=== PATIENT | male | born 1950 | race Caucasian/White ===

== ENCOUNTER → 2021-08-28 13:49 | Outpatient (BNVA) | payer MEDICARE, SELFPAY | PROVIDERS: PCP Internal Medicine; Visit Provider Surgery | DX: K40.90 Unilateral inguinal hernia, without obstruction or gangrene, not specified as recurrent (principal); Z53.20 Procedure and treatment not carried out because of patient's decision for unspecified reasons; Z77.098 Contact with and (suspected) exposure to other hazardous, chiefly nonmedicinal, chemicals; L03.319 Cellulitis of trunk, unspecified | CPT/HCPCS: 99202 ==

== ENCOUNTER 2021-10-23 13:19 | Outpatient (REF) | payer MEDICARE, SELFPAY ==
[2021-10-23 13:41] LABS: MANUAL DIFF FLAG NO
[2021-10-23 14:47] LABS: Basophils Absolute Auto 0.1 X10*3/uL (0.0-0.2); Basophils Percent Auto 0.7 % (0-2); Eosinophils Absolute Auto 0.3 X10*3/uL (0.0-0.4); Eosinophils Percent Auto 3.3 % (0-4); Hematocrit 46.4 % (42.0-52.0); Hemoglobin 15.4 g/dl (14.0-18.0); Imm Gran Abs Auto 0.02 X10*3/uL (0.00-0.03); Imm Gran Pct Auto 0.3 % (0.0-0.4); Lymphocytes Absolute Auto 1.5 X10*3/uL (1.2-4.9); Lymphocytes Percent Auto 19.1 % (20-40); Mean Corpuscular HGB Conc 33.2 g/dl (31.0-36.0); Mean Corpuscular Hemoglobin 29.8 pg (27.0-33.0); Mean Corpuscular Volume 89.7 fL (80.0-98.0); Mean Platelet Volume 9.3 fL (9.4-12.4); Monocytes Absolute Auto 0.6 X10*3/uL (0.1-1.2); Monocytes Percent Auto 7.9 % (2-11); Neutrophils Absolute Auto 5.3 x10*3/uL (2.0-8.3); Neutrophils Percent Auto 68.7 % (45-73); Platelet Count 182 X10*3/uL (160-400); Red Blood Count 5.17 X10*6/uL (4.60-5.80); Red Cell Distribution Width 13.3 % (11.0-16.0); White Blood Count 7.6 X10*3/uL (4.8-10.8)
[2021-10-23 15:10] LABS: Alanine Aminotransferase 27 U/L (0-40); Albumin Level 4.4 g/dL (3.5-5.0); Alkaline Phosphatase 92 U/L (39-117); Anion Gap 16 (12-20); Aspartate Amino Transferase 22 U/L (5-37); Bilirubin Total 0.3 mg/dL (0.0-1.0); Blood Urea Nitrogen 22 mg/dL (9-16); Calcium 9.4 mg/dL (8.4-10.2); Carbon Dioxide 28 mmol/L (22-29); Chloride 104 mmol/L (96-108); Estimated Glomerular Filt Rate > 60; Glucose Random 146 mg/dL (60-115); Sodium 144 mmol/L (135-145); Total Protein 8.1 g/dL (6.5-8.0)
[2021-10-23 15:13] LABS: Estimated Average Glucose 120 mg/dL; Hemoglobin A1c % 5.8 %
== END 2021-10-23 13:20 | disposition home or self-care (01) ==
LOC: HO.LAB 13:19
PROVIDERS: PCP Internal Medicine; Visit Provider Surgery
DX: R10.9 Unspecified abdominal pain (principal); E11.9 Type 2 diabetes mellitus without complications; K40.90 Unilateral inguinal hernia, without obstruction or gangrene, not specified as recurrent; L03.319 Cellulitis of trunk, unspecified; Z77.098 Contact with and (suspected) exposure to other hazardous, chiefly nonmedicinal, chemicals
CPT/HCPCS: 36415; 80053; 83036; 84134; 85025; 99212

== ENCOUNTER → 2021-11-23 10:24 | Outpatient (BNVA) | payer MEDICARE, SELFPAY | PROVIDERS: PCP Internal Medicine; Visit Provider Urology | DX: N40.1 Benign prostatic hyperplasia with lower urinary tract symptoms (principal); R39.12 Poor urinary stream; R35.0 Frequency of micturition | CPT/HCPCS: 51798; 99202 ==

== ENCOUNTER → 2022-02-15 14:47 | Outpatient (BNVA) | payer MEDICARE, SELFPAY | PROVIDERS: PCP Internal Medicine; Visit Provider Surgery | DX: K40.20 Bilateral inguinal hernia, without obstruction or gangrene, not specified as recurrent (principal); N40.1 Benign prostatic hyperplasia with lower urinary tract symptoms; E11.9 Type 2 diabetes mellitus without complications | CPT/HCPCS: 99212 ==

== ENCOUNTER 2022-03-14 06:12 | Day surgery (SDC) | payer MEDICARE, SELFPAY ==
[2022-03-14 06:27] VITALS: BP 112/63; PULSE 79; RESP 18; TEMP 36.6; O2SAT 97
[2022-03-14 06:34] VITALS: BMI 25.5
--- NOTE | 2022-03-14 07:11 | MHC.SHP ---
Pre-Procedural Eval Section A Date of Service: 03/14/22 The patient is an INPATIENT: No The History & Physical has been completed within 30 days and I have reviewed it.: Yes Section B Chief Complaint: Bilateral inguinal hernia, without obstruction Allergies: Allergies Allergy/AdvReac Type Severity Reaction Status Date / Time No Known Allergies Allergy Verified 02/15/22 14:49 Plan I have reviewed the history and physical and performed a pertinent physical examination on my patient. No changes have occurred unless specified. Time Spent With Patient Time: Total time managing care of this patient today ____ minutes.
--- NOTE | 2022-03-14 07:11 | W.PM.OPN ---
Operative Note Operative Note Date of Service: 03/14/22 Narrative: Preop diagnosis: [Bilateral inguinal hernia, left more symptomatic than right] Postop diagnosis: [Same, bilateral indirect inguinal hernia; a non inflamed appendix was present in the indirect right inguinal hernia and reduced with closure of the hernia sac (Amyand hernia) ] Procedure: [Open mesh repair of bilateral indirect inguinal hernia, 3cm on left, 2cm on right] Surgeon: Nicolas Flanagan MD Assist: [] Anesthesia: [General via LMA] Estimated blood loss: [3cc] Specimen: [None] Indication: [The patient is a 71-year-old gentleman who is sent by the [facility] because of bilateral inguinal hernia that is been present for some number of years. The patient reports numerous maladies related to Agent Wheeler exposure in time in [place] so after medical clearance from his PCP, we discussed repair of his bilateral inguinal hernias. The hernia have enlarged and while the patient has no signs or symptoms of obstruction or incarceration, he is interested in open repair with mesh. He also presented with urinary incontinence and dribbling and was sent for evaluation by Urology. We discussed the options of laparoscopic and open inguinal hernia repair with mesh versus the option of continued observation or 2nd opinion. The patient's questions seemed to be satisfactorily answered. Activity restrictions, specifically the patient cannot lift more than 20 lb for the next 4 weeks, the need for light duty, the fact that the patient is not disabled and can perform light duty was all discussed and apparently understood. The options including continued observation versus operative repair by me or at the MI and 2nd opinion were also discussed. The inherent risks to open inguinal hernia repair were discussed and options of laparoscopic or robotic/MIS repair were also discussed. These risks of hernia surgery include, but are not limited to: Bleeding, infection, hernia recurrence especially if weight gain or postoperative instructions are not followed, nerve entrapment, urinary retention, chronic pain, mesh complications that could require reoperation. The patient seemed to understand all of these options, had his questions answered and wanted to proceed. Activity restrictions were also discussed at length in the patient's questions seemed to be answered. ] Intraoperative findings: [Viable properitoneal fat in a 3 cm left inguinal hernia; viable noninflamed appendix in the right indirect inguinal hernia] Procedure: [ The patient was identified in the preoperative holding area by myself and the operative site marked by me confirming bilateral inguinal hernia, left larger than right. 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 The operative field hair had been clipped in preop holding. The patient was again identified in the operating suite and placed supine on the table. See anesthesia notes for full details regarding anesthesia care and management. An appropriate time-out was performed confirming the operative site and procedure. The patient was then widely prepped and draped in the usual manner using chlorhexidine. A left ileoinguinal nerve block was performed using Marcaine, 0.5% with epi and a standard left inguinal herniorrhaphy incision made sharply through the skin. Dissection was carried through all layers using electric cautery for dissection and hemostasis. Additional local was infiltrated is the external oblique aponeurosis, in the external oblique aponeurosis opened sharply in the direction of its fibers to the external ring. The ilioinguinal nerve was identified and preserved/sacrificed through the dissection. The cord was mobilized at the level of the pubic tubercle and surrounded with hernia tape. The floor was inspected and intact. Careful dissection of the spermatic cord to preserve the vessels and vas was performed to assess for indirect hernia sac. The hernia sac was highly dissected and its contents reduced. Next, internal ring-plasty using a 2-0 Polysorb and a standard [place] tension-free herniorrhaphy performed using polypropylene patch that was sutured to the pubic tubercle and inguinal ligament using a 2-0 Polysorb. A new internal ring was made using 2-0 polypropylene suture. The new internal ring was snug enough that it could just accommodate a tip of a hemostat. Next, the operative field was inspected for hemostasis which was good, the external oblique aponeurosis was closed with a running 0 Polysorb suture, subcutaneous tissues closed with 3-0 Polysorb and skin closed with running 4-0 Monocryl subcuticular suture. Next, a right ileoinguinal nerve block was performed using Marcaine, 0.5% with epi and a standard right inguinal herniorrhaphy incision made sharply through the skin. Dissection was carried through all layers using electric cautery for dissection and hemostasis. Additional local was infiltrated is the external oblique aponeurosis, in the external oblique aponeurosis opened sharply in the direction of its fibers to the external ring. The ilioinguinal nerve was identified and preserved/sacrificed through the dissection. The cord was mobilized at the level of the pubic tubercle and surrounded with hernia tape. The floor was inspected and intact. Careful dissection of the spermatic cord to preserve the vessels and vas was performed to assess for indirect hernia sac. The hernia sac was highly dissected, opened, and viable appendix encountered and carefully returned to the peritoneal cavity since there was no inflammation. Next, internal ring-plasty using a 2-0 Polysorb and a standard [place] tension-free herniorrhaphy performed using polypropylene patch that was sutured to the pubic tubercle and inguinal ligament using a 2-0 Polysorb. A new internal ring was made using 2-0 polypropylene suture. The new internal ring was snug enough that it could just accommodate a tip of a hemostat. Next, the operative field was inspected for hemostasis which was good, the external oblique aponeurosis was closed with a running 0 Polysorb suture, subcutaneous tissues closed with 3-0 Polysorb and skin closed with running 4-0 Monocryl subcuticular suture. The abdomen was washed and dried, Mastisol and Steri-Strips applied followed by a sterile dressing. Patient tolerated the procedure well was sent to the recovery area in stable condition. All sponge and instrument counts were correct x2.]
--- NOTE | 2022-03-14 07:19 | HO.ANESPROP2 ---
HPI - Anesthesia Eval Consult details Narrative: [facility] Active Problems Active Problems: All Active Problems (Updated 03/07/22 @ 14:42 by Debbie Raines, RN) Inguinal hernia (Acute) Cellulitis of pubic region (Acute) DMII (diabetes mellitus, type 2) (Acute) Urinary incontinence (Acute) BPH loc w urin obs/LUTS (Acute) Weak urinary stream (Acute) Urinary frequency (Acute) Inguinal hernia bilateral, non-recurrent (Acute) Agent orange exposure (Acute) Colonoscopy refused (Acute) Lower back pain (Acute) Renal cyst (Acute) Benign liver cyst (Acute) Past Medical History Medical History (Updated 03/07/22 @ 14:42 by Debbie Raines, RN) Agent orange exposure Agoraphobia Anxiety Benign liver cyst Colonoscopy refused DJD (degenerative joint disease) GERD (gastroesophageal reflux disease) Hx of seizure disorder Hyperlipidemia Lower back pain Renal cyst Family History Family History Mother Diabetes Breast cancer Substance use disorder Family history of problems with anesthesia: No Surgical History Surgical History (Updated 03/07/22 @ 14:17 by Debbie Raines, ORALIA) History of bilateral cataract extraction Hx of colonoscopy History of Problems with Anesthesia: No Social History Social History Housing: Apartment Patient Tobacco Use Status: Former Tobacco user e-Cigarette/Vaping Use: Never Used Use of substances other than those prescribed or required for medical reasons: No Are you DNR?: No Advance Directives: No Advance Directives Information Provided: Yes Current occupational status: retired Cognitive needs: No Hearing needs: No Vision needs: No Meds Allergies Allergy/AdvReac Type Severity Reaction Status Date / Time No Known Allergies Allergy Verified 02/15/22 14:49 Active Medications: Current Medications Lactated Ringer's (Lr) 1,000 mls @ 100 mls/hr IVCONT .Q10H [facility] Home Medications Medication Instructions Recorded Confirmed Last Taken Type multivitamin (Daily Multi-Vitamin 1 tab PO DAILY 12/19/20 03/07/22 Unknown History tablet) magnesium 200 mg tablet 200 mg PO BID 08/15/21 03/07/22 Unknown History ascorbic acid (vitamin C) 500 mg 500 mg PO BID 03/07/22 03/07/22 Unknown History tablet (Vitamin C) aspirin 81 mg tablet,delayed 81 mg PO DAILY 03/07/22 03/07/22 Unknown History release cholecalciferol (vitamin D3) 25 25 mcg PO DAILY 03/07/22 03/07/22 Unknown History mcg (1,000 unit) tablet (Vitamin D3) cyanocobalamin (vitamin B-12) 1,000 mcg PO DAILY 03/07/22 03/07/22 Unknown History 1,000 mcg tablet (Vitamin B-12) fish, borage, flaxseed oils-omega cap PO 03/07/22 Unknown History 3,6,9 comb no.1 1,200 mg capsule ([place] 3-6-9) ginkgo biloba 40 mg tablet 40 mg PO DAILY 03/07/22 03/07/22 Unknown History ginseng 250 mg capsule 250 mg PO DAILY 03/07/22 03/07/22 Unknown History nitroglycerin 0.4 mg sublingual 0.4 mg sublingual Q5M PRN Chest 03/07/22 03/07/22 Unknown History tablet Pain vitamin B complex 1 cap PO DAILY 03/07/22 03/07/22 Unknown History vitamin E 268 mg (400 unit) capsule 268 mg PO DAILY 03/07/22 03/07/22 Unknown History Exam Exam Date and Time: March 14, [id number] Height,Weight and Vital Signs: Height 6 ft 4 in Weight 95.254 kg Last Vital Signs Temp 97.8 F 03/14/22 06:27 Pulse 79 03/14/22 06:27 Resp 18 03/14/22 06:27 BP 112/63 03/14/22 06:27 Pulse Ox 97 03/14/22 06:27 O2 Del Method 03/14/22 06:27 Airway Mallampati Class: I TM Dist: >3cm Neck ROM: Full Denture: Upper Partial: Lower Heart: ok Lungs: ok Assessment and Plan Final Anesthetic Review Family History of Problems with Anesthesia: No History of Problems with Anesthesia: No NPO: Yes ASA Class: II and Final Preanesthetic Review: No Changes in Pt Med Stat, Meds/Allgs Chart Reviewed, Consent Obtained/Reviewed and Anes Risks/Benef Reviewed Patient Risk: Intermediate Procedure Risk: Low Anesthetic Plan Anesthetic Plan: GA and Agree w/ Assess. and Plan Disposition: Standard PACU
[2022-03-14 09:50] VITALS: BP 101/45; PULSE 85; RESP 14; TEMP 36.9; O2SAT 95
[2022-03-14 09:55] VITALS: BP 103/53; PULSE 85; RESP 16; O2SAT 96
[2022-03-14] MEDS: oxyCODONE HCl Immed Release 5 MG TABLET 10 MG PO (09:56)
[2022-03-14] MEDS: Acetaminophen 325 MG TABLET 650 MG PO (09:56)
[2022-03-14 10:00] VITALS: BP 103/56; PULSE 77; RESP 16; O2SAT 97
[2022-03-14 10:05] VITALS: BP 115/62; PULSE 75; RESP 16; O2SAT 97
[2022-03-14 10:20] VITALS: BP 111/57; PULSE 76; RESP 16; TEMP 36.8; O2SAT 94
== END 2022-03-14 11:10 | disposition home or self-care (01) ==
PROVIDERS: PCP Internal Medicine; Visit Provider Surgery
PROC: (CPT 49650; principal; 2022-03-14 07:30)
DX: K40.20 Bilateral inguinal hernia, without obstruction or gangrene, not specified as recurrent (principal)
CPT/HCPCS: 49650; C1781; J0690; J2405; J2795; J3010

== ENCOUNTER → 2022-03-22 10:25 | Outpatient (BNVA) | payer MEDICARE, SELFPAY | PROVIDERS: PCP Internal Medicine; Visit Provider Surgery | DX: Z13.89 Encounter for screening for other disorder (principal) ==

== ENCOUNTER 2022-05-13 13:57 | Outpatient (REF) | payer MEDICARE, SELFPAY ==
[2022-05-17 01:33] LABS: PSA, Ultra Sensitive 1.62 ng/mL
== END 2022-05-13 13:58 | disposition home or self-care (01) ==
LOC: HO.HMGCLDS 13:57
PROVIDERS: PCP Internal Medicine; Visit Provider Urology
DX: Z12.5 Encounter for screening for malignant neoplasm of prostate (principal); N40.1 Benign prostatic hyperplasia with lower urinary tract symptoms
CPT/HCPCS: 36415; 84153

== ENCOUNTER → 2022-05-22 13:12 | Outpatient (BNVA) | payer MEDICARE, SELFPAY | PROVIDERS: PCP Internal Medicine; Visit Provider Urology | DX: N40.1 Benign prostatic hyperplasia with lower urinary tract symptoms (principal); R39.12 Poor urinary stream; R35.0 Frequency of micturition | CPT/HCPCS: 51798; 99212 ==

== ENCOUNTER 2022-11-20 13:36 | Outpatient (AMB) | payer MEDICARE, SELFPAY ==
--- NOTE | 2022-11-20 13:43 | MHC.OFFVIS ---
Intake Intake Visit Reasons: 6m follow up Intake Note: Patient presents today for a follow-up on BPH Loc w urine Obs/LUTS, Urinary frequency & Weak Urinary Stream: Meds- Sildenafil & Tamsulosin Allergies to Antibiotic- No Known Allergies Blood Thinner- Aspirin & Furosemide PVR- 0 ml Scientific Writer Required: No Accompanied by: Self / Same As Patient Allergies No Known Allergies Allergy (Verified 11/20/22 14:18) HPI 6m follow up HPI Details Bryson Bonilla is a 72-year-old male who presents today to the office for a six-month follow up. 12/20/22 ? Tr is being followed for BPH. The patient?s last visit was on 05/22/2022. The patient is taking tamsulosin 0.4 mg once daily. He states that somedays he noticed that his urinary stream is weaker. I discussed that I would order tamsulosin 0.4 mg twice a day. However, It is okay if he uses the tamsulosin B.I.D. on Friday, Friday, and Friday if he feels taking B.I.D. every day is too much for him. He was advised that he should not take Viagra within 4 hours of tamsulosin usage. 05/13/2022-- PSA results reviewed? 1.62. Evaluation today: Blood: negative, leukocytes: negative. Bladder scan PVR: 0 mL. Plan: PSA screening prior was ordered. The patient will follow up in a year. [facility] Medical History (Updated 12/15/22 @ 10:20 by Dylon Gordon MD) DJD (degenerative joint disease) Agoraphobia Hx of seizure disorder Hyperlipidemia GERD (gastroesophageal reflux disease) Anxiety Agent orange exposure Colonoscopy refused Lower back pain Renal cyst Benign liver cyst Surgical History Hx of colonoscopy History of bilateral cataract extraction Family History Mother Diabetes Breast cancer Substance use disorder Social History Housing: Apartment Patient Tobacco Use Status: Former Tobacco user e-Cigarette/Vaping Use: Never Used Current occupational status: retired Cognitive needs: No Hearing needs: No Vision needs: No Review of Systems Const All systems reviewed & are unremarkable except as noted in HPI and below Reports no additional complaints Eyes Reports no additional complaints ENT Reports no additional complaints Card Reports no additional complaints Resp Reports no additional complaints GI Reports no additional complaints Musc Reports no additional complaints Skin/Breast Reports system reviewed and no additional complaints, except as documented Neuro Reports no additional complaints Psych Reports no additional complaints Endo Reports no additional complaints James/Lymph Reports no additional complaints Aller/Immun Reports no additional complaints Physical Exam Const General: healthy appearing, no acute distress and well developed Orientation/consciousness: patient oriented x3 HEENT Head: Yes normocephalic and Yes atraumatic Eyes Conjunctivae: conjunctivae normal Neck Neck: Yes normal visual inspection Chest Chest palpation & inspection: normal inspection of the chest Resp Effort & Inspection: normal respiratory effort Cardio Rate: regular rate GI Inspection: Yes normal to inspection Skin General skin exam: no rashes or lesions noted Neuro General: patient oriented x3 Extrem General: Yes no pedal edema Psych Appearance: grossly normal Affect: normal affect Office Procedures Post Void Residual Post Residual Void Post Void Residual (PVR): 0 [id number] Void Residual by ultrasound Results AMB Urinalysis, Automated UA Leukoctes 0 Naomie/uL Last Edit by Mansi Wells [facility] on 11/20/22 14:19 UA Nitrite Negative Last Edit by Mansi Wells [facility] on 11/20/22 14:19 UA Urobilinogen 0.2 mg/dL Last Edit by Mansi Wells [facility] on 11/20/22 14:19 UA Protein 0 mg/dL Last Edit by Mansi Wells [facility] on 11/20/22 14:19 UA pH 6.0 Last Edit by Mansi Wells [facility] on 11/20/22 14:19 UA Blood 0 Gideon/uL Last Edit by Mansi Wells [facility] on 11/20/22 14:19 UA Specific [place] 1.015 Last Edit by Mansi Wells [facility] on 11/20/22 14:19 UA Ketone Negative Last Edit by Mansi Wells [facility] on 11/20/22 14:19 UA Bilirubin 0 mg/dL Last Edit by Mansi Wells [facility] on 11/20/22 14:19 UA Glucose 0 mg/dL Last Edit by YU Esquivel on 11/20/22 14:19 Results Reviewed Results Reviewed: Laboratory Last Values Urine pH (Auto) 6.0 11/20/22 13:46 Specific [place] (Auto) 1.015 11/20/22 13:46 Urine Protein (Auto) 0 mg/dL 11/20/22 13:46 Glucose (UA)(Auto) 0 mg/dL 11/20/22 13:46 Urine Ketones (Auto) Negative 11/20/22 13:46 Urine Blood (Auto) 0 Gideon/uL 11/20/22 13:46 Urine Nitrite (Auto) Negative 11/20/22 13:46 Urine Bilirubin (Auto) 0 mg/dL 11/20/22 13:46 Urine Urobilinogen (Auto) 0.2 mg/dL 11/20/22 13:46 Leukocyte Esterase (Auto) 0 Naomie/uL 11/20/22 13:46 Assessment & Plan Assessment & Plan (1) BPH (benign prostatic hyperplasia): Code(s): N40.0 - Benign prostatic hyperplasia without lower urinary tract symptoms (2) Erectile dysfunction: Code(s): N52.9 - Male erectile dysfunction, unspecified Plan PSA screening prior was ordered. The patient will follow up in a year. Orders: Orders AMB Urinalysis Automated 11/20/22 Z13.9 - Encounter for screening, unspecified AMB Post Void Residual by ultrasound 11/20/22 N39.8 - Other specified disorders of urinary system Patient Instructions: The patient had an opportunity to ask questions regarding treatment plan. All questions were answered. Imaging, Laboratory studies and physical exam results were discussed and reviewed in detail. No major barriers to understanding were identified. The patient expressed understanding and agreement with the above treatment plan. The patient is aware they should contact our office by phone for worsening of their current condition or the appearance of new symptoms. Compliance is encouraged with any medications and followup testing that is ordered. It is a privilege to be allowed the opportunity to participate in the urologic care of your patient. If you have any questions or concerns regarding treatment for the above conditions please do not hesitate to contact me. The office telephone contact is [phone]. This note is constructed in part using voice recognition software. While every effort has been made to ensure accuracy mill operator errors may have been included. Yours sincerely, Dylon Gordon MD Coding Level of Care Code Est Pt Level 4 (01665) Diagnoses BPH (benign prostatic hyperplasia) N40.0 Erectile dysfunction N52.9 CPT Codes Post Residual Void - PVR CPT Code: 42067-Riwk Void Residual by ultrasound ([id number])
== END 2022-11-20 14:40 | disposition home or self-care (01) ==
PROVIDERS: PCP Internal Medicine; Visit Provider Urology
DX: N40.0 Benign prostatic hyperplasia without lower urinary tract symptoms (principal); N52.9 Male erectile dysfunction, unspecified
CPT/HCPCS: 99214

== ENCOUNTER → 2022-11-20 13:36 | Outpatient (BNVA) | payer MEDICARE, SELFPAY | PROVIDERS: Visit Provider Urology | DX: N40.0 Benign prostatic hyperplasia without lower urinary tract symptoms (principal); N52.9 Male erectile dysfunction, unspecified | CPT/HCPCS: 51798; 81003; 99212 ==

== ENCOUNTER 2023-04-14 14:45 | Outpatient (REF) | payer MEDICARE, SELFPAY ==
[2023-04-14 16:14] LABS: MANUAL DIFF FLAG NO
[2023-04-14 16:17] LABS: Basophils Percent Auto 0.4 % (0-2); Eosinophils Absolute Auto 0.3 X10*3/uL (0.0-0.4); Eosinophils Percent Auto 3.5 % (0-4); Hematocrit 44.2 % (42.0-52.0); Hemoglobin 14.8 g/dl (14.0-18.0); Imm Gran Abs Auto 0.02 X10*3/uL (0.00-0.03); Imm Gran Pct Auto 0.3 % (0.0-0.4); Lymphocytes Absolute Auto 1.5 X10*3/uL (1.2-4.9); Lymphocytes Percent Auto 20.3 % (20-40); Mean Corpuscular HGB Conc 33.5 g/dl (31.0-36.0); Mean Corpuscular Hemoglobin 29.8 pg (27.0-33.0); Mean Corpuscular Volume 88.9 fL (80.0-98.0); Mean Platelet Volume 9.6 fL (9.4-12.4); Monocytes Absolute Auto 0.5 X10*3/uL (0.1-1.2); Monocytes Percent Auto 6.9 % (2-11); Neutrophils Percent Auto 68.6 % (45-73); Platelet Count 188 X10*3/uL (160-400); Red Blood Count 4.97 X10*6/uL (4.60-5.80); Red Cell Distribution Width 13.1 % (11.0-16.0); White Blood Count 7.3 X10*3/uL (4.8-10.8)
[2023-04-14 16:31] LABS: Alanine Aminotransferase 15 U/L (0-40); Albumin Level 4.3 g/dL (3.5-5.0); Alkaline Phosphatase 71 U/L (39-117); Anion Gap 10 (12-20); Aspartate Amino Transferase 17 U/L (5-37); Bilirubin Total 0.8 mg/dL (0.0-1.0); Blood Urea Nitrogen 19 mg/dL (9-16); Calcium 9.3 mg/dL (8.4-10.2); Carbon Dioxide 29 mmol/L (22-29); Chloride 106 mmol/L (96-108); Cholesterol 156 mg/dL (<200); Estimated Glomerular Filt Rate > 60; Glucose Fasting 102 mg/dL (60-99); HDL Cholesterol 36 mg/dL (>40); LDL Cholesterol Calculated 104 mg/dL (<100); Sodium 141 mmol/L (135-145); Total Protein 8.1 g/dL (6.5-8.0); Triglycerides 84 mg/dL (<150)
[2023-04-14 16:33] LABS: Estimated Average Glucose 114 mg/dL; Hemoglobin A1c % 5.6 % (<6.0); Total Hemoglobin (HGBA1C) 3518.1667 umol/L
== END 2023-04-14 14:46 | disposition home or self-care (01) ==
LOC: HO.HMGCLDS 14:45
PROVIDERS: PCP Internal Medicine; Visit Provider Internal Medicine
DX: R73.9 Hyperglycemia, unspecified (principal); E78.5 Hyperlipidemia, unspecified; N40.0 Benign prostatic hyperplasia without lower urinary tract symptoms
CPT/HCPCS: 36415; 80053; 80061; 83036; 85025

== ENCOUNTER 2023-04-21 10:50 | Outpatient (AMB) | payer MEDICARE, SELFPAY ==
[2023-04-21 11:03] VITALS: BP 118/76; PULSE 80; O2SAT 96; BMI 26.1
--- NOTE | 2023-04-21 11:03 | MHC.PC.OV ---
Vital Signs 04/21/23 11:03 Height 6 ft 3 in Weight 209 lb BMI 26.1 BP 118/76 Blood Pressure Location Lt brachial Position Sitting Pulse 80 Pulse Source Pulse Oximeter Pulse Oximetry (%) 96 Oxygen Delivery Method Room Air Intake Visit Reasons: Annual PE/Discuss/Bill ACP Intake Note: Pt is here today for PE. Allergies No Known Allergies Allergy (Verified 04/21/23 11:05) Medication List - Last Reconciled 04/21/23 by Romina Kelly MD ascorbic acid (vitamin C) (Vitamin C) 500 mg PO BID aspirin 81 mg PO DAILY buspirone 7.5 mg PO BID PRN cholecalciferol (vitamin D3) (Vitamin D3) 25 mcg PO DAILY cyanocobalamin (vitamin B-12) (Vitamin B-12) 1,000 mcg PO DAILY fish,bora,flax oils-om3,6,9no1 1,200 mg ([place] 3-6-9) caps PO furosemide 20 mg PO DAILY gabapentin 600 mg PO BID ginkgo biloba 40 mg PO DAILY ginseng 250 mg PO DAILY magnesium 200 mg PO BID nitroglycerin 0.4 mg sublingual Q5M PRN omeprazole 20 mg PO DAILY tamsulosin 0.4 mg PO BID 90 days vitamin B complex 1 cap PO DAILY vitamin E 268 mg PO DAILY Tobacco use date assessed: 04/21/23 Fall risk assessment: No Falls in past year Last assessed Fall Risk: 04/21/23 Dental Screening Dental Screen Date: 04/21/23 Did you have a dental visit in the last 12 months?: Yes Did you have a dental problem in the last 6 months where you did not have access to dental care?: No Was dental information given to patient?: Patient has dentist HPI Annual PE/Discuss/Bill ACP HPI Details Patient presents for annual physical. Initiated the conversation about Advanced Directives. Advanced Directives help? patients prepare for current and future decisions about their medical treatment? and place of care. Discussed with patient that it is a process where a patients? current condition and prognosis are reviewed, their wishes for information? regarding their illness are elicited, and likely medical dilemmas are presented? and options discussed. The form can be amended as needed, reviewed yearly and? make changes as needed IPPE/AWV ? year old presents? for her ? Annual? Wellness Visit, initial visit.? Medical / Social History Reviewed? Past Medical History ?Yes? . ? [place]? of Care / Care Team list updated ?Yes . ? Surgical/Hospitalization? History ?Yes . ? Current Medications? (including OTC and supplements) ?Yes . ? Family History ?Yes? . ? Tobacco? Control form ?Yes . ? AUDIT-C (Alcohol use) form? ?Yes . ? Illicit drug use in Social? History ?Yes . ? Current diagnosis of? depression? ?No ? Appropriate PHQ2/PHQ9? completed ?Yes . ? Data entered by ?Medical? Injection Mold Technician and reviewed by provider ? Fall Risk ? Fall? History? Have you had any falls with? injury in the past year? ?No . ? Have you had two or more? falls in the past year? ?No . ? Fall Risk Assessment: ?No? falls in the past year . ? HRA filled out by? the patient, reviewed by Provider and scanned. ? IPPE/AWV ? Balance? [place]? ?Yes . ? Tandem? walk ?Yes . ? Walk and? Turn ?Yes . ? Rise from? sit to stand ?Yes . ?Vision? Corrective? lens ?Yes ? Vision? screen ? Up-to-date, has an appointment [] for vision? screening and glaucoma screening ?Hearing? Whisper? test ?pass .? Initiated the conversation about Advanced Directives. Advanced Directives help? patients prepare for current and future decisions about their medical treatment? and place of care. Discussed with patient that it is a process where a patients? current condition and prognosis are reviewed, their wishes for information? regarding their illness are elicited, and likely medical dilemmas are presented? and options discussed. The form can be amended as needed, reviewed yearly and? make changes as needed Written? Plan?Completed. See Patient? Documents. [facility] Medical History (Updated 04/21/23 @ 11:57 by Romina Kelly MD) DJD (degenerative joint disease) Agoraphobia Hx of seizure disorder Hyperlipidemia GERD (gastroesophageal reflux disease) Anxiety Agent orange exposure Colonoscopy refused Lower back pain Renal cyst Benign liver cyst Surgical History Hx of colonoscopy History of bilateral cataract extraction Family History Mother Diabetes Breast cancer Substance use disorder Social History Housing: Apartment Patient Tobacco Use Status: Former Tobacco user e-Cigarette/Vaping Use: Never Used Current occupational status: retired Cognitive needs: No Hearing needs: No Vision needs: No Questionnaire PHQ-9 Over the last 2 weeks, how often have you been bothered by any of the following problems? 1. Little interest or pleasure in doing things: not at all 2. Feeling down, depressed, or hopeless: not at all 3. Trouble falling or staying asleep, or sleeping too much: not at all 4. Feeling tired or having little energy: not at all 5. Poor appetite or overeating: not at all 6. Feeling bad about yourself - or that you are a failure or have let yourself or your family down: not at all 7. Trouble concentrating on things, such as reading the newspaper or watching television: not at all 8. Moving or speaking so slowly that other people could have noticed. Or the opposite - being so fidgety or restless that you have been moving around a lot more than usual: not at all 9. Thoughts that you would be better off or of hurting yourself in some way: not at all Total score: 0 Depression Screening Interpretation: Negative Depression Screening Done: Yes Source: Developed by Drs. Avery Machuca, Harriett Garcia, Gigi Espinal and colleagues, with an educational vijaya from [employer]. Thrive Questionnaire Date Thrive assessed: 04/21/23 I am a: Patient What is your living situation today?: I have a steady place to live Within the past 12 months, did the food you bought not last and you didn't have the money to get more?: Never true Within the past 12 months, did you worry whether your food would run out before you got money to buy more?: Never true Do you have trouble paying for medicines?: No Do you have trouble getting transportation to medical appointments?: Yes Do you have trouble paying your heating and electricity bill?: No Do you have trouble taking care of your child, family member or friend?: No Do you have trouble with day-to-day activities such as bathing, preparing meals, shopping, managing finances, etc.?: No Are you currently unemployed and looking for a job?: No Are you interested in more education?: Yes Please select the resources that you would like help with: Education Currently or been in a relationship where the following occur: no concerns reported THRIVE Score: 1 AUDIT C Alcohol Use Questionnaire (AUDIT-C) 1. How often do you have a drink containing alcohol?: Never 3. How often do you have six or more drinks on one occasion?: Never Total Score: 0 AMY-7 AMB Questionnaire AMY-7 Date AMY - 7 assessed: 04/21/23 Feeling nervous, anxious, or on edge: 0 = Not at all Not being able to stop or control worryin = Not at all Worrying too much about different things: 0 = Not at all Trouble relaxin = Not at all Being so restless that it is hard to sit still: 0 = Not at all Becoming easily annoyed or irritable: 0 = Not at all Feeling afraid as if something awful might happen: 0 = Not at all Total AMY-7 score (0-4 normal; 5-9 mild; 10-14 moderate; 15-21 severe): 0 Source: Developed by Drs. Avery Machuca, Harriett Garcia, Gigi Espinal and colleagues, with an educational vijaya from [employer]. Review of Systems Const All systems reviewed & are unremarkable except as noted in HPI and below Reports no additional complaints Eyes Reports no additional complaints ENT Reports no additional complaints Card Reports no additional complaints Resp Reports no additional complaints GI Reports no additional complaints Reports no additional complaints Musc Reports no additional complaints Physical exam (Primary Care) Vital Signs: Last Vital Signs Pulse 80 04/21/23 11:03 BP 118/76 04/21/23 11:03 Pulse Ox 96 04/21/23 11:03 Oxygen Delivery Method Room Air 04/21/23 11:03 BMI result Body Mass Index 26.1 Tobacco/Smoking Status: Tobacco use Status Tobacco use date assessed 04/21/23 04/21/23 11:09 Patient Tobacco Use Status Former Tobacco user 04/21/23 11:09 e-Cigarette/Vaping Use Never Used 04/21/23 11:09 PHQ-9: PHQ-9 Score PHQ-9: Total score 0 04/21/23 11:09 Depression Screening Interpretation: Negative Thrive Assessment: Date of Thrive Assessment Date Thrive assessed 04/21/23 04/21/23 11:09 Currently or been in a relationship where the following occur: no concerns reported Advance Care Planning discussion: Exists, not on file Forms completed: Health Care Proxy Time spent: 1-15 minutes, not on file Const General: no acute distress HENMT Head: Yes normal to inspection Ears: hearing grossly normal bilaterally Face and sinus: Yes normal facial exam Mouth: Normal oral and palatal mucosa present Throat: Yes posterior oropharynx normal Eyes General: appearance normal, both eyes and all related structures Neck Neck: Yes no lymphadenopathy and Yes supple Resp Effort & Inspection: normal respiratory effort Auscultation: clear to auscultation bilaterally Cardio Rhythm: regular rhythm Heart sounds: S1 normal heart sound present and S2 normal heart sound present GI Inspection: Yes normal to inspection Palpation (GI): Soft to palpation Percussion: Yes normal to percussion Auscultation: normal bowel sounds Assessment and Plan Assessment & Plan (1) BPH (benign prostatic hyperplasia): Code(s): N40.0 - Benign prostatic hyperplasia without lower urinary tract symptoms Plan: cont tamsulosin and follow-up with Urology (2) Hyperglycemia: Code(s): R73.9 - Hyperglycemia, unspecified Plan: A1c is down to 5.6, continue ADA diet regular exercise (3) Hyperlipidemia: Code(s): E78.5 - Hyperlipidemia, unspecified (4) Annual physical exam: Code(s): Z00.00 - Encounter for general adult medical examination without abnormal findings Plan: Well-balanced diet regular physical activity discussed with the patient. He declined colonoscopy and Cologuard (5) Colonoscopy refused: Comment: 05/02, Cologuard refused 06/03 Code(s): Z53.20 - Procedure and treatment not carried out because of patient's decision for unspecified reasons Orders: Orders Comprehensive [place]. Panel Fast 365 Days N40.0 - Benign prostatic hyperplasia without lower urinary tract symptoms, R73.9 - Hyperglycemia, unspecified, Z00.00 - Encounter for general adult medical examination without abnormal findings, Z53.20 - Procedure and treatment not carried out because of patient's decision for unspecified reasons Hemoglobin A1c 365 Days N40.0 - Benign prostatic hyperplasia without lower urinary tract symptoms, R73.9 - Hyperglycemia, unspecified, Z00.00 - Encounter for general adult medical examination without abnormal findings, Z53.20 - Procedure and treatment not carried out because of patient's decision for unspecified reasons Complete Blood Count Auto Diff 365 Days N40.0 - Benign prostatic hyperplasia without lower urinary tract symptoms, R73.9 - Hyperglycemia, unspecified, Z00.00 - Encounter for general adult medical examination without abnormal findings, Z53.20 - Procedure and treatment not carried out because of patient's decision for unspecified reasons Lipid Panel 365 Days N40.0 - Benign prostatic hyperplasia without lower urinary tract symptoms, R73.9 - Hyperglycemia, unspecified, Z00.00 - Encounter for general adult medical examination without abnormal findings, Z53.20 - Procedure and treatment not carried out because of patient's decision for unspecified reasons UA w Microscopic 365 Days N40.0 - Benign prostatic hyperplasia without lower urinary tract symptoms, R73.9 - Hyperglycemia, unspecified, Z00.00 - Encounter for general adult medical examination without abnormal findings, Z53.20 - Procedure and treatment not carried out because of patient's decision for unspecified reasons PSA,Total (Free>4and<10) 365 Days N40.0 - Benign prostatic hyperplasia without lower urinary tract symptoms, R73.9 - Hyperglycemia, unspecified, Z00.00 - Encounter for general adult medical examination without abnormal findings, Z53.20 - Procedure and treatment not carried out because of patient's decision for unspecified reasons Medications: Changed From buspirone 7.5 mg PO BID 60 tabs 6RF To buspirone 7.5 mg PO BID PRN Discontinued sildenafil (Viagra) administer 30 minutes to 4 hours before activity Discontinued Reason: Doctor's Order 50 mg PO DAILY PRN 10 tabs 3RF sexual activity meloxicam Discontinued Reason: Doctor's Order 15 mg PO DAILY 30 tabs 2RF Coding Level of Care Code Est Pt Prev Care >65y(84968) Diagnoses BPH (benign prostatic hyperplasia) N40.0 Hyperglycemia R73.9 Hyperlipidemia E78.5 Annual physical exam Z00.00 Colonoscopy refused Z53.20 Additional Codes Vital Signs *Quality* - Advance Care Planning discussion: Exists, not on file ([id number]) Vital Signs *Quality* - Time spent: 1-15 minutes, not on file ([id number])
== END 2023-04-21 11:58 | disposition home or self-care (01) ==
PROVIDERS: PCP Internal Medicine; Visit Provider Internal Medicine
DX: N40.0 Benign prostatic hyperplasia without lower urinary tract symptoms (principal); R73.9 Hyperglycemia, unspecified; E78.5 Hyperlipidemia, unspecified; Z00.00 Encounter for general adult medical examination without abnormal findings; Z53.20 Procedure and treatment not carried out because of patient's decision for unspecified reasons
CPT/HCPCS: 1123F; 1124F; 99397

== ENCOUNTER 2023-09-30 12:00 | Outpatient (AMB) | payer MEDICARE, SELFPAY ==
--- NOTE | 2023-09-30 12:03 | MHC.PC.OV ---
Vital Signs 09/30/23 12:04 Height 6 ft 3 in Weight 208 lb BMI 26.0 BP 128/80 Blood Pressure Location Lt brachial Position Sitting Pulse 80 Pulse Source Pulse Oximeter Pulse Oximetry (%) 97 Oxygen Delivery Method Room Air Intake Visit Reasons: 5 month follow up - see comments Intake Note: Pt is here today for 5 months follow up visit. Allergies No Known Allergies Allergy (Verified 09/30/23 12:06) Medication List - Last Reconciled 09/30/23 by Romina Kelly MD ascorbic acid (vitamin C) (Vitamin C) 500 mg PO BID aspirin 81 mg PO DAILY buspirone 7.5 mg PO BID PRN cholecalciferol (vitamin D3) (Vitamin D3) 25 mcg PO DAILY cyanocobalamin (vitamin B-12) (Vitamin B-12) 1,000 mcg PO DAILY fish,bora,flax oils-om3,6,9no1 1,200 mg ([place] 3-6-9) caps PO furosemide 20 mg PO DAILY gabapentin 600 mg PO BID ginkgo biloba 40 mg PO DAILY ginseng 250 mg PO DAILY magnesium 200 mg PO BID meloxicam 15 mg PO DAILY nitroglycerin 0.4 mg sublingual Q5M PRN omeprazole 20 mg PO DAILY tamsulosin 0.4 mg PO BID 90 days vitamin B complex 1 cap PO DAILY vitamin E 268 mg PO DAILY Tobacco use date assessed: 09/30/23 Fall risk assessment: No Falls in past year Last assessed Fall Risk: 09/30/23 Dental Screening Dental Screen Date: 04/21/23 HPI 5 month follow up - see comments HPI Details Patient presents for the follow-up of BPH chronic lower back pain controlled on gabapentin and meloxicam as needed. Patient follows up with urology for BPH with a symptomatic controlled on Flomax. [facility] Medical History (Updated 09/30/23 @ 14:08 by Romina Kelly MD) DJD (degenerative joint disease) Agoraphobia Hx of seizure disorder Hyperlipidemia GERD (gastroesophageal reflux disease) Anxiety Agent orange exposure Colonoscopy refused Lower back pain Renal cyst Benign liver cyst Surgical History (Updated 09/30/23 @ 12:20 by YU Anderson) History of bilateral inguinal hernia repair Hx of colonoscopy History of bilateral cataract extraction Family History Mother Diabetes Breast cancer Substance use disorder Social History Housing: Apartment Patient Tobacco Use Status: Former Tobacco user e-Cigarette/Vaping Use: Never Used service: Yes Current occupational status: retired Cognitive needs: No Hearing needs: No Vision needs: No Questionnaire PHQ-9 Over the last 2 weeks, how often have you been bothered by any of the following problems? 1. Little interest or pleasure in doing things: not at all Source: Developed by Drs. Avery Machuca, Harriett Garcia, Gigi Espinal and colleagues, with an educational vijaya from [employer]. Thrive Questionnaire Date Thrive assessed: 09/30/23 I am a: Patient What is your living situation today?: I choose not to answer this question Within the past 12 months, did the food you bought not last and you didn't have the money to get more?: I choose not to answer this question Within the past 12 months, did you worry whether your food would run out before you got money to buy more?: I choose not to answer this question Do you have trouble paying for medicines?: I choose not to answer this question Do you have trouble getting transportation to medical appointments?: I choose not to answer this question Do you have trouble paying your heating and electricity bill?: I choose not to answer this question Do you have trouble taking care of your child, family member or friend?: I choose not to answer this question Do you have trouble with day-to-day activities such as bathing, preparing meals, shopping, managing finances, etc.?: I choose not to answer this question Are you currently unemployed and looking for a job?: I choose not to answer this question Are you interested in more education?: I choose not to answer this question Please select the resources that you would like help with: None Currently or been in a relationship where the following occur: I choose not to answer THRIVE Score: 0 AUDIT C Alcohol Use Questionnaire (AUDIT-C) 1. How often do you have a drink containing alcohol?: Never 3. How often do you have six or more drinks on one occasion?: Never Total Score: 0 AMY-7 AMB Questionnaire AMY-7 Date AMY - 7 assessed: 09/30/23 Feeling nervous, anxious, or on edge: 0 = Not at all Not being able to stop or control worryin = Not at all Worrying too much about different things: 0 = Not at all Trouble relaxin = Not at all Being so restless that it is hard to sit still: 0 = Not at all Becoming easily annoyed or irritable: 0 = Not at all Feeling afraid as if something awful might happen: 0 = Not at all Total AMY-7 score (0-4 normal; 5-9 mild; 10-14 moderate; 15-21 severe): 0 Source: Developed by Drs. Avery Machuca, Harriett Garcia, Gigi Espinal and colleagues, with an educational vijaya from [employer]. AMY-7 Assessment Billing AMY-7 Assessment Tool: AMY-7 Assessment 05130 Review of Systems Const All systems reviewed & are unremarkable except as noted in HPI and below Reports no additional complaints Eyes Reports no additional complaints ENT Reports no additional complaints Card Reports no additional complaints Resp Reports no additional complaints GI Reports no additional complaints Reports no additional complaints Physical exam (Primary Care) Vital Signs: Last Vital Signs Pulse 80 09/30/23 12:04 BP 128/80 09/30/23 12:04 Pulse Ox 97 09/30/23 12:04 Oxygen Delivery Method Room Air 09/30/23 12:04 BMI result Body Mass Index 26.0 Tobacco/Smoking Status: Tobacco use Status Tobacco use date assessed 09/30/23 09/30/23 12:13 Patient Tobacco Use Status Former Tobacco user 09/30/23 12:13 e-Cigarette/Vaping Use Never Used 09/30/23 12:13 Thrive Assessment: Date of Thrive Assessment Date Thrive assessed 09/30/23 09/30/23 12:17 Currently or been in a relationship where the following occur: I choose not to answer Const General: no acute distress HENMT Head: Yes normal to inspection Face and sinus: Yes normal facial exam Throat: Yes posterior oropharynx normal Eyes General: appearance normal, both eyes and all related structures Neck Neck: Yes no lymphadenopathy and Yes supple Resp Effort & Inspection: normal respiratory effort Auscultation: clear to auscultation bilaterally Cardio Rhythm: regular rhythm Heart sounds: S1 normal heart sound present and S2 normal heart sound present GI Inspection: Yes normal to inspection Palpation (GI): Soft to palpation Percussion: Yes normal to percussion Auscultation: normal bowel sounds Assessment and Plan Assessment & Plan (1) BPH (benign prostatic hyperplasia): Code(s): N40.0 - Benign prostatic hyperplasia without lower urinary tract symptoms Plan: Continue Flomax and follow-up with Urology (2) Lower back pain: Comment: hx of LB injury and DJD Code(s): M54.50 - Low back pain, unspecified Plan: Continue gabapentin and meloxicam p.r.n. Medications: Discontinued buspirone Discontinued Reason: Change Referral Type 7.5 mg PO BID PRN Coding Level of Care Code Est Pt Level 3 (08092) Diagnoses BPH (benign prostatic hyperplasia) N40.0 Lower back pain M54.50 Additional Codes AMY-7 Assessment Billing - AMY-7 Assessment Tool: AMY-7 Assessment 29736 ([id number])
[2023-09-30 12:04] VITALS: BP 128/80; PULSE 80; O2SAT 97; BMI 26.0
== END 2023-09-30 13:38 | disposition home or self-care (01) ==
PROVIDERS: PCP Internal Medicine; Visit Provider Internal Medicine
DX: N40.0 Benign prostatic hyperplasia without lower urinary tract symptoms (principal); M54.50 Low back pain, unspecified
CPT/HCPCS: 99213

== ENCOUNTER 2024-03-15 11:40 | Outpatient (REF) | payer MEDICARE, SELFPAY ==
--- OUTSIDE RECORDS SUMMARY | 2024-03-15 13:01 | XMS_ITS | Clinical Summary ---
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 DX:H/ O total knee replacement History of total hip replacement 03/25/2018 DX:History of total hip replacement Insomnia 10/06/2017 DX:Insomnia Lower extremity edema 04/03/2017 DX:Lower e xtremity edema Psoriasis 05/08/2015 DX:Psoriasis Seizures (CMS/HCC) 11/13/2015 DX:Seizures ( HCC) Family History Medical History Relation Name Comments No Known Problems Brother No Known Problems Daughter No Known Problems Father No Known Problems Mother No Known Problems Sister No Known Problems Son Autoimmune disease Neg Hx Breast cancer Neg Hx Colon cancer Neg Hx Coronary artery disease Neg Hx Diabetes Neg Hx Heart attack Neg Hx Heart failure Neg Hx Hyperlipidemia Neg Hx Hypertension Neg Hx Mental illness Neg Hx Prostate cancer Neg Hx Sleep apnea Neg Hx Thyroid disease Neg Hx Relation Name Status Comments Brother Daughter Father Mother Sister Son Social History Tobacco Use Types Packs/Day Years Used Date Smoking Tobacco: Former Smokeless Tobacco: Never Alcohol Use Standard Drinks/Week Comments No 0 (1 standard drink = 0.6 oz pur e alcohol) Sex and Gender Information Value Date Recorded Sex Assigned at Not on file Gender Identity Not on file Sexual Orientation Not on file Obstetrics History Plan of Treatment Health Maintenance Due Date Last Done Comments DTaP,Tdap,and Td Vaccines (1 - Tdap) 1969 Zoster Vaccines (1 of 2) 2000 COVID-19 Vaccine (2023-2 5 season) 2023 Influenza Vaccine (#1) 2023 RSV Immunization Patients 60 + Years Old (1 - 1-dose 75+ series) 2025 Pneumococcal Vaccine: 65+ Years Completed 04/03/2017, 08/07/2015 HIB Vaccines Aged Out No longer eligi ble based on patient's age to complete this topic HPV Vaccines Aged Out No longer eligi ble based on patient's age to complete this topic Hepatitis A Vaccines Aged Out No long er eligible based on patient's age to complete this topic Hepatitis B Vaccines Aged Out No long er eligible based on patient's age to complete this topic IPV Vaccines Aged Out No longer eligi ble based on patient's age to complete this topic MMR Vaccines Aged Out No longer eligi ble based on patient's age to complete this topic Meningococcal ACWY Vaccine Aged Out N o longer eligible based on patient's age to complete this topic RSV Immunization Patients Under 20 months Aged Out No longer eligible b ased on patient's age to complete this topic Varicella Vaccines Aged Out No longer eligible based on patient's age to complete this topic
[2024-03-15 14:45] LABS: PSA,Total (Free>4and<10) 1.93 ng/mL (0.00-4.00)
== END 2024-03-15 11:41 | disposition home or self-care (01) ==
LOC: HO.HMGCLDS 11:40
PROVIDERS: PCP Internal Medicine; Visit Provider Urology
DX: Z00.00 Encounter for general adult medical examination without abnormal findings (principal); Z53.20 Procedure and treatment not carried out because of patient's decision for unspecified reasons; R73.9 Hyperglycemia, unspecified; N40.0 Benign prostatic hyperplasia without lower urinary tract symptoms; Z12.5 Encounter for screening for malignant neoplasm of prostate
CPT/HCPCS: 36415; 84153

== ENCOUNTER 2024-04-09 15:37 | Outpatient (AMB) | payer MEDICARE, SELFPAY ==
--- NOTE | 2024-04-09 15:41 | MHC.OFFVIS ---
Intake Visit Reasons: 1y/PSA Intake Note: Patient is present for 1 year BPH Urology Meds: tamsulosin Antibiotic Allergies: none Blood Thinners: ASA Last PVR: 0 Todays PVR: Vocational Education Teacher Required: No Accompanied by: Self / Same As Patient Allergies No Known Allergies Allergy (Verified 04/09/24 15:48) HPI Comments Details: 05/22/22--Bryson Bradley is a 71-year-old male who presents to the office for BHP follow-up and discussion of PSA lab results. LV?11/23/2021-- Bryson is a 71-year-old gentleman who is referred by General surgery due to the patient's urinary symptoms. The patient is being followed by General surgery for hernia. The patient is a and states that he spent time in [place] and was exposed to Agent Hampton. He states that he feels exposure to Agent Hampton is the cause of the bladder symptoms which he states he has had for over 50 years. He stated that he has an urge to urinate frequently, sometimes there is hesitancy and a weak stream. Denies dysuria or blood in the urine. Former tobacco user. 05/22/2022-- The patient is here for follow-up for PSA screening and discussed his urinary symptoms since starting the Tamsulosin. The patient states that initially in the first 2 months he notes a significant improvement in the urinary stream and over the last month he feels the urinary flow is not as strong as initially when he started the medication. I discussed to increase the water intake. He is taking tamsulosin 0.4 mg QD and he admits that he has cut back on the water intake. I want to him to continue tamsulosin 0.4 mg QD and will increase the dose to twice a day in the future if needed. PSA results reviewed?05/13/2022-- 1.62. Evaluation today: Blood: negative, leukocytes: negative. Bladder scan PVR: 66 mL. AUA symptom score: 9 Plan: Advised to consume adequate amount of water. PSA screening Continue with tamsulosin 0.4 mg QD. Follow-up in 6 months. COUNT INCLUDES THE [facility] Medical History DJD (degenerative joint disease) Agoraphobia Hx of seizure disorder Hyperlipidemia GERD (gastroesophageal reflux disease) Anxiety Agent orange exposure Colonoscopy refused Lower back pain Renal cyst Benign liver cyst Surgical History History of bilateral inguinal hernia repair Hx of colonoscopy History of bilateral cataract extraction Family History Mother Diabetes Breast cancer Substance use disorder Social History Housing: Apartment Patient Tobacco Use Status: Former Tobacco user e-Cigarette/Vaping Use: Never Used service: Yes Current occupational status: retired Cognitive needs: No Hearing needs: No Vision needs: No Office Procedures Post Void Residual Post Residual Void Post Void Residual (PVR): 85 [id number] Void Residual by ultrasound Results AMB Urinalysis, Automated UA Leukoctes 0 Naomie/uL Last Edit by Deanne Kay MA on 04/09/24 15:57 UA Nitrite Negative Last Edit by Deanne Kay MA on 04/09/24 15:57 UA Urobilinogen 0.2 mg/dL Last Edit by Deanne Kay MA on 04/09/24 15:57 UA Protein 0 mg/dL Last Edit by Deanne Kay MA on 04/09/24 15:57 UA pH 6.0 Last Edit by Deanne Kay MA on 04/09/24 15:57 UA Blood 0 Gideon/uL Last Edit by Deanne Kay MA on 04/09/24 15:57 UA Specific [place] 1.015 Last Edit by Deanne Kay MA on 04/09/24 15:57 UA Ketone Negative Last Edit by Deanne Kay MA on 04/09/24 15:57 UA Bilirubin 0 mg/dL Last Edit by Deanne Kay MA on 04/09/24 15:57 UA Glucose 0 mg/dL Last Edit by Deanne Kay MA on 04/09/24 15:57 Quality Reporting (2019) Benign Prostatic Hyperplasia ([facility] 771) AUA symptom score: 19 Quality of life due to urinary symptoms: If you were to spend the rest of your life with your urinary condition the way it is now, how would you feel about that?: Unhappy Results Reviewed Results Reviewed: Laboratory Last Values Urine pH (Auto) 6.0 04/09/24 09:11 Specific [place] (Auto) 1.015 04/09/24 09:11 Urine Protein (Auto) 0 mg/dL 04/09/24 09:11 Glucose (UA)(Auto) 0 mg/dL 04/09/24 09:11 Urine Ketones (Auto) Negative 04/09/24 09:11 Urine Blood (Auto) 0 Gideon/uL 04/09/24 09:11 Urine Nitrite (Auto) Negative 04/09/24 09:11 Urine Bilirubin (Auto) 0 mg/dL 04/09/24 09:11 Urine Urobilinogen (Auto) 0.2 mg/dL 04/09/24 09:11 Leukocyte Esterase (Auto) 0 Naomie/uL 04/09/24 09:11 Assessment & Plan Assessment & Plan (1) BPH (benign prostatic hyperplasia): Code(s): N40.0 - Benign prostatic hyperplasia without lower urinary tract symptoms Category: Medical (2) Nocturia more than twice per night: Code(s): R35.1 - Nocturia Category: Medical Orders: Orders AMB Urinalysis Automated Today Z13.9 - Encounter for screening, unspecified AMB Post Void Residual by ultrasound Today N40.0 - Benign prostatic hyperplasia without lower urinary tract symptoms US retroperitoneal comp Today N40.0 - Benign prostatic hyperplasia without lower urinary tract symptoms, R35.1 - Nocturia Medications: New dutasteride (Avodart) 0.5 mg PO DAILY 30 caps 5RF Coding Diagnoses BPH (benign prostatic hyperplasia) N40.0 Nocturia more than twice per night R35.1 CPT Codes Post Residual Void - PVR CPT Code: [id number] Void Residual by ultrasound ([id number]) AUA Symptom Score AUA Incomplete emptying - It does not feel like I empty my bladder all the way.: 3 - About half the time Frequency - I have to go again less than two hours after I finish urinating.: 1 - Less than 1 time in 5 Intermittency - I stop and start again several times when I urinate.: 2 - Less than half the time Urgency - It is hard to wait when I have to urinate.: 4 - More than half the time Weak stream - I have a weak urinary stream.: 2 - Less than half the time Straining - I have to push or strain to begin urination.: 3 - About half the time Nocturia - I get up to urinate after I go to bed until the time I get up in the morning.: 4 times AUA Symptom Score: 19 Quality of life due to urinary symptoms: If you were to spend the rest of your life with your urinary condition the way it is now, how would you feel about that?: Unhappy Source: Harvey PARTIDA, Winifred ABDULLAHI Jr, O'Ollie MP, et al, and the Measurement Committee of the [place] [employer]. The [place] [employer] symptom index for benign prostatic hyperplasia. J Urol. 1992; 148: 5598-0991. Copyright 1992 [place] [employer]
--- OUTSIDE RECORDS SUMMARY | 2024-04-09 17:41 | XMS_ITS | Continuity of Care Document ---
Demographics Address [address] [place] [address] Home Phone Phone [phone] Preferred Language en Marital Status Unknown Jew Affiliation Unknown Race Unknown Ethnic Group Unknown Author Name [facility] Organization [facility] Care Team Providers Care It Operations Manager Name Role Phone [facility] Unavailable Unavailable Problems Combined list of problems from Department of Defense and Veterans Affairs facilities. It does not include entries that were removed or entered in error. Problem Status Onset Date Problem Type Date of Resolution Comments Source Abnormal weight loss Active Condition Nov 30, 2013 Entered By: CARTER AYON Comment: CT, ABD NOV 23; ABNL; r/o Pancreatic LlesionOct 2013 Entered By: CARTER AYON Comment: request MRI, ABD WHAV DEC 24 [place] Agoraphobia (SNOMED CT [id number]) Active [facility] [place] [facility] Aortic aneurysm screening normal Active Condition Sep 15 2 Entered By: NINO HOOPER Comment: 09/13/21 No evidence of abdominal aortic aneurysm. [facility] [place] [facility] Bipolar disorder Active Condition [place] Cataract Active Condition Aug 29 11 Entered By: CARTER AYON Comment: Surg O.U. AUGUST 20 [place] Cervicalgia Active Condition [facility] [place] [facility] Chronic low back pain Active Condition [facility] [place] [facility] Chronic pain Active Condition Mar 17, 2013 Entered By: CARTER AYON Comment: [facility] Rx Registry, NO EVENTS as of 03/16/13 [facility] [place] [facility] Colon cancer screening declined (SNOMED CT [id number]) Active Condition Mar 10, 2006 Entered By: CARTER AYON Comment: Father CRC - high-risk CRCFeb 2007 Entered By: CARTER AYON Comment: pending Colonoscopy end of APR 17 [facility] 2007 Entered By: CARTER AYON Comment: pt. now chooses to pursue Colorectal CancerJul 2007 Entered By: CARTER AYON Comment: [facility] ([facility]Jul 24, 2006 Entered By: SARATH GUERRERO Comment: referd gi [place] Displacement of lumbar intervertebral disc without myelopathy Active Condition Dec 03, 2005 Entered By: CARTER AYON Comment: +Radicular Sx left LE, post asp L5-S1Jul 2006 Entered By: CARTER AYON Comment: never had surg; has declined disc surg in past [place] DJD Active Condition Dec 03 Entered By: CARTER AYON Comment: C-Spine; also HNP C-SpineMar 10, 2006 Entered By: CARTER AYON Comment: C4-C5Jul 2006 Entered By: CARTER AYON Comment: never a had surgJul 24, 2006 Entered By: SARATH GUERRERO Comment: will need to bring back to talk about pain meds,tryvicod in [place] EKG Active Condition Jul 20 Entered By: CARTER AYON Comment: EKG, JULY 21; NSR [place] Enlarged prostate Active Condition [facility] [place] [facility] Erectile dysfunction Active Condition [facility] [place] [facility] Generalized anxiety disorder Active Condition [facility] [place] GERD Active Condition [place] H/o of Seizure Disorder(mini seizure) Active Condition Jul 24, 2006 Entered By: SARATH GUERRERO Comment: declines refer to neuro, understands risks [facility] [place] HEART Active Condition Dec 03 Entered By: CARTER AYON Comment: Adenosine Stress w/ Myocardial Perfusion Imaging Jan Entered By: CARTER AYON Comment: EF 63%; no EKG changes c/w IschemiaFeb 2007 Entered By: CARTER AYON Comment: CAD; declined CABG [place] Housing lack Active Condition [facility] [place] [facility] Hyperlipidemia Active Condition Jul 122021 Entered By: HELDER NORIEGA Comment: Total chol/HDL/LDL/ trigs: 159/34/97/141 (08/03/21) --> ASCVD 18.4%, goal LDL < 70. Will have f/u to discuss statin therapy, prior CV histoyr, and FHx. 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 use of non-steroidal anti-inflammatory drug Active [facility] Medication Management Active Condition Mar 14, 2009 Entered By: CARTER AYON Comment: Signed Opioid Agreement 14 MAR 2009 [place] Unspecified episodic mood Disorder (ICD-9-CM 296.90) [facility] Bipolar Disorder NOS * (ICD-9-CM 296.7/296.80) Inactive Condition 05/10/2009 [facility] Medications Combined list of outpatient medications from Department of Defense and Veterans Affairs facilities.Medications provided include 1) outpatient medications from the last 15 months, and 2) patient-reported medications. Medication Details Route Status Patient Instructions Prescription Expires Prescription Number Last Dispense Date Ordering Provider Order Date Order Qty Source FUROSEMIDE 20MG TAB TAKE ONE TABLET BY MOUTH ONCE DAILY ORAL ACTIVE DALKE,MAT 2021 [facility] GABAPENTIN 300MG CAP TAKE 2 CAPSULES BY MOUTH TWICE DAILY ORAL ACTIVE DALKE,MAT 2021 [facility] MELOXICAM 15MG TAB TAKE ONE TABLET BY MOUTH ONCE DAILY ORAL ACTIVE DALKE,MAT 2021 [facility] NITROGLYCER IN 0.4MG TAB,SUBLING UAL DISSOLVE ONE TABLET UNDER THE TONGUE EVERY 5 MINUTES NEEDED SUBLIN GUAL ACTIVE DALKE,MAT 2021 [facility] OMEPRAZOLE 20MG CAP,EC TAKE 1 CAPSULE BY MOUTH EVERY MORNING 30 MINUTES BEFORE BREAKFAS T ORAL ACTIVE DALKE,MAT 2021 [facility] SILDENAFIL CITRATE 50MG TAB TAKE ONE TABLET BY MOUTH ONE HOUR BEFORE SEXUAL ACTIVITY TAKE 1 HOUR PRIOR TO SEXUAL ACTIVITY ORAL 05/30/2023 [id number] STEPHANIE CHRISTIANSON 2022 [facility] Allergies, Adverse Reactions, Alerts Combined list of allergies from Department of Defense and Veterans Affairs facilities. It does not include entries that were removed or entered in error. Substance Category Reaction Severity Reaction type Status Date Reported Comments Source FIRE ANTS Propensity to adverse reaction (finding) active 6 [facility] STRAWBERRIES Propensity to adverse reactions to food (finding) active 6 [facility] VITAMIN B COMPLEX Propensity to adverse reactions to drug (finding) active 6 [facility] Immunizations Combined list of available immunizations from the Department of Defense and Veterans Affairs facilities. Immunization Series Date Given Administered By Site Reaction Lot Number CVX Code Drug Mica Washer Gluer Status Comments Source COVID-19 (MODERNA), MRNA, LNP-S, PF, 100 MCG/0.5ML DOSE OR 50 MCG/0.25ML DOSE 2 2021 207 complet ed [facility] COVID-19 (MODERNA), MRNA, LNP-S, PF, 100 MCG/0.5ML DOSE OR 50 MCG/0.25ML DOSE 1 2021 207 complet ed [facility] INFLUENZA, UNSPECIFIED FORMULATION 2021 88 complet ed [facility] FLU,3 YRS (HISTORICAL) 2013 88 complet ed Site: Left Deltoid [place] FLU,3 YRS (HISTORICAL) 2013 88 complet ed [place] FLU,3 YRS (HISTORICAL) 2011 88 complet ed [facility] FLU,3 YRS (HISTORICAL) 2011 88 complet ed Site: Left Deltoid [place] DTAP, UNSPECIFIED FORMULATION 2010 107 complet ed Site: Right Deltoid [place] INFLUENZA, UNSPECIFIED FORMULATION 1999 88 complet ed [id number] [facility] Encounters Combined list of: 1) Encounters from Department of Veterans Affairs facilities going backup to the last 18 months, not all VA inpatient encounters are included; 2) Encounters from the Department of Defense facilities going backup to 280 months. Location Location Details Encounter Type Encounter Number Reason For Visit Attending Provider ADM Date DC Date Status Disposition Source [facility] [place] [facility] Outpatient Encounter [id number] 10/29 [facility] [place] [facility] [place] [facility] Outpatient Encounter [id number] 11/20 [facility] [place] [facility] [place] [facility] Outpatient Encounter [id number] 02/22 [facility] Social History Combined list of available smoking, tobacco, and other social history from Department of Defense and Veterans Affairs facilities. Social History Type Response Date Comment Source Tobacco smoking status [facility] FORMER [facility]17[facility]20[facility] of [facility]20[facility] History of tobacco use QUIT TOBACCO USE > 7 YEARS AGO 11/02/2015 [place] History of tobacco use LIFETIME NON-TOBACCO USER 11/12/2006 [place] History of tobacco use QUIT TOBACCO USE 1-7 YEARS AGO 12/03/2005 stopped tobacco 4-5 years ago [place] History of tobacco use QUIT TOBACCO USE IN PAST YEAR 11/04/2005 neg [facility] History of tobacco use TOBACCO CESSATION: 1-5 YEARS 12/17/2004 2yrs [facility] History of tobacco use TOBACCO CESSATION: 1-5 YEARS 10/26/2003 [facility] History of tobacco use TOBACCO CESSATION: <1 YEAR 06/14/2003 continued cessation encouraged [facility] History of tobacco use TOBACCO CESSATION: <1 YEAR 03/07/2003 continued cessation encouraged [facility] History of tobacco use TOBACCO CESSATION: <1 YEAR 10/26/2002 quit ~ one month ago--continued cessation encouraged [facility] History of tobacco use TOBACCO CESSATION: <1 YEAR 08/16/2002 states quit smoking last Wed--7-2-03 [facility] History of tobacco use CURRENT SMOKER 05/17/2002 1 ppd Ultra lights, is trying to quit. [facility] History of tobacco use CURRENT SMOKER 04/13/2002 1 PPD. MIGUEL ÁNGEL EUBANKS History of tobacco use CURRENT SMOKER 04/05/2002 smokes one pack per day [facility] History of tobacco use CURRENT SMOKER 03/16/2002 1ppd MIGUEL ÁNGEL EUBANKS History of tobacco use CURRENT SMOKER 01/26/2002 smokes one pack per day [facility] History of tobacco use TOBACCO USER 09/30/2001 smokes one pack per day [facility] Plan of Care List of future care activities from Department of Veterans Affairs facilities. Additional future care activities may be listed in the Assessment and Plan section. Date/Time Care Activity Care Activity Detail Facili ty 07/02/2024 AMBULATORY - MEDICINE AMBULATORY - [facility]
--- OUTSIDE RECORDS SUMMARY | 2024-04-09 17:41 | XMS_ITS | Clinical Summary ---
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 Phone Unavailable Primary Care Provider [...] Recorded Sex Assigned at Not on file Legal Sex Male 4:58 AM EST Gender Identity Not on file Sexual Orientation Not on file Obstetrics History Plan of Treatment Health Maintenance Due Date Last Done Comments DTaP,Tdap,and Td Vaccines (1 - Tdap) 1969 Zoster Vaccines (1 of 2) 2000 COVID-19 Vaccine (2023-2 5 season) 2023 Influenza Vaccine (#1) 2023 RSV Immunization Patients 60 + Years Old (1 - 1-dose 75+ series) 2025 Pneumococcal Vaccine: 50+ Years Completed 04/03/2017, 08/07/2015 HIB Vaccines Aged [...] patient's age to complete this topic Meningococcal B Vacine Aged Out No lo nger eligible based on patient's age to complete this topic RSV Immunization Patients Under 20 months Aged Out No longer eligible b ased on patient's age to complete this topic Varicella Vaccines Aged Out No longer eligible based on patient's age to complete this topic
== END 2024-04-09 16:16 | disposition home or self-care (01) ==
PROVIDERS: PCP Internal Medicine; Visit Provider Urology
DX: Z13.9 Encounter for screening, unspecified (principal)

== ENCOUNTER → 2024-04-09 15:37 | Outpatient (BNVA) | payer MEDICARE, SELFPAY | PROVIDERS: PCP Internal Medicine; Visit Provider Urology | DX: N40.1 Benign prostatic hyperplasia with lower urinary tract symptoms (principal); R35.1 Nocturia; Z79.899 Other long term (current) drug therapy | CPT/HCPCS: 51798; 81003; 99212 ==

== ENCOUNTER 2024-04-28 11:35 | Outpatient (AMB) | payer MEDICARE, SELFPAY ==
[2024-04-28 11:48] VITALS: BP 128/74; PULSE 61; TEMP 36.8; O2SAT 96; BMI 25.7
--- NOTE | 2024-04-28 11:48 | A.OFFPC_ITS ---
Vital Signs 04/28/24 11:48 Height 6 ft 3 in Weight 206 lb BMI 25.7 BP 128/74 Blood Pressure Location Lt brachial Position Sitting Pulse 61 Pulse Source Pulse Oximeter Temp 98.3 F Temp Source Oral Pulse Oximetry (%) 96 Oxygen Delivery Method Room Air Intake Visit Reasons: Annual PE Intake Note: Pt is here today for PE. Allergies No Known Allergies Allergy (Verified 04/28/24 11:50) Medication List - Last Reconciled 04/28/24 by Romina Kelly MD ascorbic acid (vitamin C) (Vitamin C) 500 mg PO BID aspirin 81 mg PO DAILY cholecalciferol (vitamin D3) (Vitamin D3) 25 mcg PO DAILY cyanocobalamin (vitamin B-12) (Vitamin B-12) 1,000 mcg PO DAILY fish,bora,flax oils-om3,6,9no1 1,200 mg (Dexter 3-6-9) caps PO furosemide 20 mg PO DAILY gabapentin 600 mg PO BID ginkgo biloba 40 mg PO DAILY ginseng 250 mg PO DAILY magnesium 1,000 mg PO BID meloxicam 15 mg PO DAILY nitroglycerin 0.4 mg sublingual Q5M PRN omeprazole 20 mg PO DAILY tamsulosin 0.4 mg PO BID 90 days vitamin B complex 1 cap PO DAILY vitamin E 268 mg PO DAILY Tobacco use date assessed: 04/28/24 Fall risk assessment: No Falls in past year Last assessed Fall Risk: 04/28/24 Dental Screening Dental Screen Date: 04/28/24 Did you have a dental visit in the last 12 months?: Yes Did you have a dental problem in the last 6 months where you did not have access to dental care?: No Was dental information given to patient?: Patient has dentist HPI Annual PE HPI Details Pt presents for PE. PFSH Medical History DJD (degenerative joint disease) Agoraphobia Hx of seizure disorder Hyperlipidemia GERD (gastroesophageal reflux disease) Anxiety Agent orange exposure Colonoscopy refused Lower back pain Renal cyst Benign liver cyst Surgical History History of bilateral inguinal hernia repair Hx of colonoscopy History of bilateral cataract extraction Family History Mother Diabetes Breast cancer Substance use disorder Social History Housing: Apartment Patient Tobacco Use Status: Former Tobacco user e-Cigarette/Vaping Use: Never Used service: Yes Current occupational status: retired Cognitive needs: No Hearing needs: No Vision needs: No Questionnaire PHQ-9 Over the last 2 weeks, how often have you been bothered by any of the following problems? 1. Little interest or pleasure in doing things: not at all 2. Feeling down, depressed, or hopeless: not at all 3. Trouble falling or staying asleep, or sleeping too much: not at all 4. Feeling tired or having little energy: not at all 5. Poor appetite or overeating: not at all 6. Feeling bad about yourself - or that you are a failure or have let yourself o r your family down: not at all 7. Trouble concentrating on things, such as reading the newspaper or watching television: not at all 8. Moving or speaking so slowly that other people could have noticed. Or the opposite - being so fidgety or restless that you have been moving around a lot more than usual: not at all 9. Thoughts that you would be better off or of hurting yourself in some way: not at all Total score: 0 Depression Screening Interpretation: Negative Depression Screening Done: Yes 03445 - PHQ-9 Billing: Yes Source: Developed by Drs. Avery Machuca, Harriett Garcia, Gigi cuevas nd colleagues, with an educational vijaya from [email or web address]. Thrive Questionnaire Date Thrive assessed: 04/28/24 I am a: Patient What is your living situation today?: I choose not to answer this question Within the past 12 months, did the food you bought not last and you didn't have the money to get more?: I choose not to answer this question Within the past 12 months, did you worry whether your food would run out before you got money to buy more?: I choose not to answer this question Do you have trouble paying for medicines?: I choose not to answer this question Do you have trouble getting transportation to medical appointments?: I choose not to answer this question Do you have trouble paying your heating and electricity bill?: I choose not to answer this question Do you have trouble taking care of your child, family member or friend?: I choose not to answer this question Do you have trouble with day-to-day activities such as bathing, preparing meals, shopping, managing finances, etc.?: I choose not to answer this question Are you currently unemployed and looking for a job?: I choose not to answer this question Are you interested in more education?: I choose not to answer this question Please select the resources that you would like help with: None Currently or been in a relationship where the following occur: I choose not to answer THRIVE Score: 0 AUDIT C Alcohol Use Questionnaire (AUDIT-C) 1. How often do you have a drink containing alcohol?: Never Total Score: 0 AMY-7 AMB Questionnaire AMY-7 Date AMY - 7 assessed: 04/28/24 Feeling nervous, anxious, or on edge: 0 = Not at all Not being able to stop or control worryin = Not at all Worrying too much about different things: 0 = Not at all Trouble relaxin = Not at all Being so restless that it is hard to sit still: 0 = Not at all Becoming easily annoyed or irritable: 0 = Not at all Feeling afraid as if something awful might happen: 0 = Not at all Total AMY-7 score (0-4 normal; 5-9 mild; 10-14 moderate; 15-21 severe): 0 Source: Developed by Drs. Avery Machuca, Harriett Garcia, Gigi Espinal and colleagues, with an educational vijaya from [email or web address]. AMY-7 Assessment Billing AMY-7 Assessment Tool: AMY-7 Assessment 67226 Review of Systems Const All systems reviewed & are unremarkable except as noted in HPI and below Eyes Reports no additional complaints ENT Reports no additional complaints Card Reports no additional complaints Resp Reports no additional complaints GI Reports no additional complaints Reports no additional complaints Physical exam (Primary Care) Vital Signs: Last Vital Signs Temp 98.3 F 04/28/24 11:48 Pulse 61 04/28/24 11:48 BP 128/74 04/28/24 11:48 Pulse Ox 96 04/28/24 11:48 Oxygen Delivery Method Room Air 04/28/24 11:48 BMI result Body Mass Index 25.7 Tobacco/Smoking Status: Tobacco use Status Tobacco use date assessed 04/28/24 04/28/24 11:58 Patient Tobacco Use Status Former Tobacco user 04/28/24 11:50 e-Cigarette/Vaping Use Never Used 04/28/24 11:50 PHQ-9: PHQ-9 Score PHQ-9: Total score 0 04/28/24 11:58 Depression Screening Interpretation: Negative Thrive Assessment: Date of Thrive Assessment Date Thrive assessed 04/28/24 04/28/24 11:58 Currently or been in a relationship where the following occur: I choose not to answer Const General: no acute distress HENMT Head: Yes normal to inspection Ears: hearing grossly normal bilaterally General nose exam: Normal external nose present Mouth: Normal oral and palatal mucosa present Throat: Yes posterior oropharynx normal Eyes General: appearance normal, both eyes and all related structures Neck Neck: Yes no lymphadenopathy and Yes supple Resp Effort & Inspection: normal respiratory effort Auscultation: clear to auscultation bilaterally Cardio Rhythm: regular rhythm Heart sounds: S1 normal heart sound present and S2 normal heart sound present GI Inspection: Yes normal to inspection Palpation (GI): Soft to palpation Percussion: Yes normal to percussion Auscultation: normal bowel sounds Coding Level of Care Code Est Pt Prev Care >65y(17690) Diagnoses BPH loc w urin obs/LUTS N40.1 Annual physical exam Z00.00 Additional Codes AMY-7 Assessment Billing - AMY-7 Assessment Tool: AMY-7 Assessment 22486 ([id number]) PHQ-9 - 50616 - PHQ-9 Billing: Yes ([id number]) Assessment & Plan Assessment & Plan (1) BPH loc w urin obs/LUTS: Comment: Established with Urology Code(s): N40.1 - Benign prostatic hyperplasia with lower urinary tract symptoms Category: Medical Plan: Continue Flomax follow-up with Urology (2) Annual physical exam: Code(s): Z00.00 - Encounter for general adult medical examination without abnormal findings Category: Medical Plan: Well-balanced diet regular physical activity discussed with the patient he declined colonoscopy and Cologuard Orders: Orders PSA,Total (Free>4and<10) 11/11/23 N40.0 - Benign prostatic hyperplasia without lower urinary tract symptoms, N40.1 - Benign prostatic hyperplasia with lower urinary tract symptoms Medications: Discontinued gabapentin Discontinued Reason: Doctor's Order 600 mg PO BID 180 tabs 3RF furosemide Discontinued Reason: Doctor's Order 20 mg PO DAILY 90 tabs 0RF
--- OUTSIDE RECORDS SUMMARY | 2024-04-28 14:15 | XMS_ITS | Continuity of Care Document ---
Demographics [address] [place] [address] Home Phone Phone [phone] Preferred Language en Marital Status Unknown Jewish Affiliation Unknown Race Unknown Ethnic Group Unknown Author Name [facility] Organization [facility] Care Team Providers Care Practical Nursing Instructor Name Role Phone [facility] Unavailable Unavailable Problems Combined list of problems [...] Comment: request MRI, ABD WHAV DEC 24 [place] Agoraphobia (SNOMED CT [id number]) [facility] [place] [facility] Aortic aneurysm screening normal Active Condition Sep 15 2 Entered By: NINO HOOPER Comment: 09/13/21 No evidence of abdominal aortic aneurysm. [facility] [place] [facility] Bipolar disorder Active Condition [place] Cataract Active Condition Aug 29 11 Entered By: CARTER AYON Comment: Surg O.U. AUGUST 20 [place] Cervicalgia Active Condition [facility] [place] [facility] Chronic low back pain Active Condition [facility] [place] [facility] Chronic pain Active Condition Mar 17, 2013 Entered By: CARTER AYON Comment: [facility] Rx Registry, NO EVENTS as of 03/16/13 [facility] [place] [facility] Colon cancer screening declined (SNOMED CT [id number]) Active Condition Mar 10, 2006 Entered By: CARTER AYON Comment: Father CRC - high-risk CRCFeb 2007 Entered By: CARTER AYON Comment: pending Colonoscopy end of APR 17 [facility] Entered By: CARTER AYON Comment: pt. now chooses to pursue Colorectal CancerJul 2007 Entered By: CARTER AYON Comment: [facility] ([facility] [email or web address])Jul 24, 2006 Entered By: SARATH GUERRERO Comment: referd gi [place] Displacement of lumbar intervertebral disc without myelopathy Active Condition Dec 03, 2005 Entered By: CARTER AYON Comment: +Radicular Sx left LE, post asp L5-S1Jul 2006 Entered By: CARTER AYON Comment: never had surg; has declined disc surg in past [place] DJD Active Condition Dec 03 Entered By: CARTER AYON Comment: C-Spine; also HNP C-SpineMar 10, 2006 Entered By: CARTER AYON Comment: C4-C5Jul 2006 Entered By: CARTER AYON Comment: never a had surgJul 24, 2006 Entered By: SARATH GUERRERO Comment: will need to bring back to talk about pain meds,tryvicod in [place] EKG Active Condition Jul 20 Entered By: CARTER AYON Comment: EKG, JULY 21; NSR [place] Enlarged prostate Active [facility] [place] [facility] Erectile dysfunction Active Condition [facility] [place] [facility] Generalized anxiety disorder Active Condition [facility] [place] GERD Active Condition [place] H/o of Seizure Disorder(mini seizure) Active Condition [...] By: CARTER AYON Comment: CAD; declined CABG [place] Housing lack Active Condition [facility] [place] [facility] Hyperlipidemia Active Condition Jul 122021 Entered By: HELDER NORIEGA Comment: Total chol/HDL/LDL/ trigs: 159/34/97/141 (08/03/21) --> ASCVD 18.4%, goal LDL < 70. Will have f/u to discuss statin therapy, prior CV histoyr, and FHx. [place] Inguinal hernia Active Condition Sep 15, 2021 Entered By: NINO HOOPER Comment: Left inguinal hernia, 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 [facility] Medication Management Active Condition Mar 14, 2009 Entered By: CARTER AYON Comment: Signed Opioid Agreement 14 MAR 2009 [place] Unspecified episodic mood Disorder (ICD-9-CM 296.90) [facility] Bipolar Disorder NOS * (ICD-9-CM 296.7/296.80) Inactive Condition 05/10/2009 [facility] Medications Combined list of outpatient medications from Department of Defense and Veterans Affairs facilities.Medications provided include 1) outpatient medications from the last 15 months, and 2) patient-reported medications. Medication Details Route Status Patient Instructions Prescription Expires Prescription Number Last Dispense Date Ordering Provider Order Date Order Qty Source FUROSEMIDE 20MG TAB TAKE ONE TABLET BY MOUTH ONCE DAILY ORAL ACTIVE DALKE,MAT 2021 [facility] GABAPENT[facility] 300MG CAP TAKE 2 CAPSULES BY MOUTH TWICE DAILY ORAL ACTIVE DALKE,MAT 2021 [facility] MELOXICAM 15MG TAB TAKE ONE TABLET BY MOUTH ONCE DAILY ORAL ACTIVE DALKE,MAT 2021 [facility] NITROGLYCER IN 0.4MG TAB,SUBLING UAL DISSOLVE ONE TABLET UNDER THE TONGUE EVERY 5 MINUTES NEEDED SUBLIN GUAL ACTIVE DALKE,MAT 2021 [facility] OMEPRAZOLE 20MG CAP,EC TAKE 1 CAPSULE BY MOUTH EVERY MORNING 30 MINUTES BEFORE BREAKFAS T ORAL ACTIVE DALKE,MAT 2021 [facility] SILDENAFIL CITRATE 50MG TAB TAKE ONE TABLET BY MOUTH ONE HOUR BEFORE SEXUAL ACTIVITY TAKE 1 HOUR PRIOR TO SEXUAL ACTIVITY ORAL 05/30/2023 [id number] STEPHANIE CHRISTIANSON 2022 6 [facility] Allergies, Adverse Reactions, Alerts Combined list of allergies from Department of Defense and Veterans Affairs facilities. It does not include entries that were removed or entered in error. Substance Category Reaction Severity Reaction type Status Date Reported Comments Source FIRE ANTS Propensity to adverse reaction (finding) active 6 [facility] STRAWBERRIES Propensity to adverse reactions to food (finding) active 6 [facility] VITAMIN B COMPLEX Propensity to adverse reactions to drug (finding) active 6 [facility] Immunizations Combined list of available immunizations from the Department of Defense and Veterans Affairs facilities. Immunization Series Date Given Administered By Site Reaction Lot Number CVX Code Drug Superintendent Division Status Comments Source COVID-19 (MODERNA), MRNA, LNP-S, PF, 100 MCG/0.5ML DOSE OR 50 MCG/0.25ML DOSE 2 2021 207 complet [facility] COVID-19 (MODERNA), MRNA, LNP-S, PF, 100 MCG/0.5ML DOSE OR 50 MCG/0.25ML DOSE 1 2021 207 complet ed [facility] INFLUENZA, UNSPECIFIED FORMULATION 2021 88 complet ed [facility] FLU,3 YRS (HISTORICAL) 2013 88 complet ed Site: Left Deltoid [place] FLU,3 YRS (HISTORICAL) 2013 88 complet ed [place] FLU,3 YRS (HISTORICAL) 2011 88 [facility] ed [facility] FLU,3 YRS (HISTORICAL) 2011 88 complet ed Site: Left Deltoid [place] DTAP, UNSPECIFIED FORMULATION 2010 107 complet ed Site: Right Deltoid [place] INFLUENZA, UNSPECIFIED FORMULATION 1999 88 complet ed [id number] [facility] Encounters Combined list of: 1) Encounters from Department of Veterans Affairs facilities going backup to the last 18 months, not all VA inpatient encounters are included; 2) Encounters from the Department of Defense facilities going backup to 280 months. Location Location Details Encounter Type Encounter Number Reason For Visit Attending Provider ADM Date DC Date Status Disposition Source [facility] [place] [facility] Outpatient Encounter [id number] 10/29 [facility] [place] [facility] [place] [facility] Outpatient Encounter [id number] 11/20 [facility] [place] [facility] [place] [facility] Outpatient Encounter [id number] 02/22 [facility] Social History Combined list of available smoking, tobacco, and other social history from Department of Defense and Veterans Affairs facilities. Social History Type Response Date Comment Source Tobacco smoking status [facility] FORMER USER 07/17/2021 [facility] of [facility] History of tobacco use QUIT TOBACCO USE > 7 YEARS AGO 11/02/2015 [place] History of tobacco use LIFETIME NON-TOBACCO USER 11/12/2006 [place] History of tobacco use QUIT TOBACCO USE 1-7 YEARS AGO 12/03/2005 stopped tobacco 4-5 years ago [place] History of tobacco use QUIT TOBACCO USE IN PAST YEAR 11/04/2005 neg [facility] History of tobacco use TOBACCO CESSATION: 1-5 YEARS 12/17/2004 2yrs LAW [facility] History of tobacco use TOBACCO CESSATION: 1-5 YEARS 10/26/2003 [facility] History of tobacco use TOBACCO CESSATION: <1 YEAR 06/14/2003 continued cessation encouraged [facility] History of tobacco use TOBACCO CESSATION: <1 YEAR 03/07/2003 continued cessation encouraged [facility] History of tobacco use TOBACCO CESSATION: <1 YEAR 10/26/2002 quit ~ one month ago--continued cessation encouraged [facility] History of tobacco use TOBACCO CESSATION: <1 YEAR 08/16/2002 states quit smoking last Wed--7-2-03 [facility] History of tobacco use CURRENT SMOKER 05/17/2002 [...] AMBULATORY - MEDICINE AMBULATORY - MEDICI [place] [facility]
== END 2024-04-28 12:50 | disposition home or self-care (01) ==
LOC: HO.HMCC 11:35
PROVIDERS: PCP Internal Medicine; Visit Provider Internal Medicine
DX: N40.1 Benign prostatic hyperplasia with lower urinary tract symptoms (principal); Z00.00 Encounter for general adult medical examination without abnormal findings

== ENCOUNTER → 2024-04-28 11:35 | Outpatient (BNVA) | payer MEDICARE, SELFPAY | PROVIDERS: PCP Internal Medicine; Visit Provider Internal Medicine | DX: Z00.01 Encounter for general adult medical examination with abnormal findings (principal); N40.1 Benign prostatic hyperplasia with lower urinary tract symptoms; E78.5 Hyperlipidemia, unspecified | CPT/HCPCS: 96127; 99397 ==

== ENCOUNTER 2024-05-20 15:28 | Outpatient (REF) | payer MEDICARE, SELFPAY ==
--- OUTSIDE RECORDS SUMMARY | 2024-05-20 17:44 | XMS_ITS | Clinical Summary ---
Author Organization [facility] Address [address] [place] [id number] Care Team Providers Care Senior Policy Analyst Name Role Phone Unavailable Primary Care Provider [...] e xtremity edema Psoriasis 05/08/2015 DX:Psoriasis Seizures ([facility] V24, CMS/HCC V28) 11/13/2015 DX:Seizures ([facility]) Family History Medical History Relation Name Comments [...] Vaccines (1 of 2) 2000 COVID-19 Vaccine (1 - 2024-2 5 season) 2023 Influenza Vaccine (Season Ended) 2024 RSV Immunization Adult Patients (1 - 1-dose 75+ series) 2025 Pneumococcal [...] age to complete this topic Meningococcal B Vaccine Aged Out No l onger eligible based on patient's age to complete this topic RSV Immunization Patients Under 20 months Aged Out No longer eligible b ased on patient's age to complete this topic Varicella Vaccines Aged Out No longer eligible based on patient's age to complete this topic
--- OUTSIDE RECORDS SUMMARY | 2024-05-20 17:44 | XMS_ITS | Continuity of Care Document ---
Demographics [facility] [address] [facility] [address] [place] [address] Home Phone Phone [phone] Preferred Language en Marital Status Unknown Rastafari Affiliation Unknown Race Unknown Ethnic Group Unknown Author Name [facility] Organization [facility] Care Team Providers Care Character Impersonator Name Role Phone [facility] Unavailable Unavailable Problems Combined list of problems [...] Comment: request MRI, ABD WHAV DEC 24 [place] Agoraphobia (SNOMED CT [id number]) [place] [facility] [place] [facility] Aortic aneurysm screening normal Active Condition Sep 15 2 Entered By: NINO HOOPER Comment: 09/13/21 No evidence of abdominal aortic aneurysm. [facility] [place] [facility] Bipolar disorder Active Condition [place] Cataract Active Condition Aug 29 11 Entered By: CARTER AYON Comment: Surg O.U. AUGUST 20 [place] Cervicalgia Active Condition [facility] [place] [facility] Chronic low back pain Active Condition [facility] [place] [facility] Chronic pain Active Condition Mar 17, 2013 Entered By: CARTER AYON Comment: [place] Rx Registry, NO EVENTS as of 03/16/13 [facility] [place] [facility] Colon cancer screening declined (SNOMED CT 79203381925239) Active Condition Mar 10, 2006 Entered By: CARTER AYON Comment: Father CRC - high-risk CRCFeb 2007 Entered By: CARTER AYON Comment: pending Colonoscopy end of APR 17 [facility] Entered By: CARTER AYON Comment: pt. now chooses to pursue Colorectal CancerJul 2007 Entered By: CARTER AYON Comment: Screening outside [facility] ([facility])Jul 24, 2006 Entered By: SARATH GUERRERO Comment: referd gi [place] Displacement of lumbar intervertebral disc without myelopathy Active Condition Dec 03, 2005 Entered By: CARTER AYON Comment: +Radicular Sx left LE, post asp L5-S1Jul 2006 Entered By: CARTER AYON Comment: never had surg; has declined disc surg in past [place] DJD Active Condition Dec 03 Entered By: CARTER AYON Comment: C-Spine; also HNP C-SpineMar 10, 2006 Entered By: CARTER AYON Comment: C4-C5Jul 2006 Entered By: CARTER AYON Comment: never a had surgJul 24, 2006 Entered By: SARATH GUERRERO Comment: will need to bring back to talk about pain meds,tryvicod in [place] EKG Active Condition Jul 20 Entered By: CARTER AYON Comment: EKG, JULY 21; NSR [place] Enlarged prostate Active Condition [facility] [place] [facility] Erectile dysfunction Active Condition [facility] [place] [facility] Generalized anxiety disorder Active Condition [facility] [place] [facility] GERD Active Condition [place] H/o of Seizure Disorder(mini seizure) Active Condition [...] By: CARTER AYON Comment: CAD; declined CABG [place] Housing lack Active Condition [facility] [place] [facility] Hyperlipidemia Active Condition Jul 122021 Entered By: HELDER NORIEGA Comment: Total chol/HDL/LDL/ trigs: 159/34/97/141 (08/03/21) --> ASCVD 18.4%, goal LDL < 70. Will have f/u to discuss statin therapy, prior CV histoyr, and FHx. [place] Inguinal hernia Active Condition Sep 15, 2021 Entered By: NINO HOOPER Comment: Left inguinal hernia, following with NonVA Gen Surg. 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 use of non-steroidal anti-inflammatory drug Active Condition [facility] Medication Management Active Condition Mar 14, 2009 Entered By: CARTER AYON Comment: Signed Opioid Agreement 14 MAR 2009 [place] Unspecified episodic mood Disorder (ICD-9-CM 296.90) [facility] Bipolar Disorder NOS * (ICD-9-CM 296.7/296.80) Inactive Condition 05/10/2009 [facility] Medications Combined list of outpatient medications from Department of Defense and Veterans Affairs facilities.Medications provided include 1) outpatient medications from the last 15 months, and 2) patient-reported medications. Medication Details Route Status Patient Instructions Prescription Expires Prescription Number Last Dispense Date Ordering Provider Order Date Order Qty Source FUROSEMIDE 20MG TAB TAKE ONE TABLET BY MOUTH ONCE DAILY ORAL ACTIVE DALKE,MAT 2021 [facility] [place] [facility] [facility] GABAPENTIN 300MG CAP TAKE 2 CAPSULES BY MOUTH TWICE DAILY ORAL ACTIVE DALKE,MAT 2021 [facility] [place] [facility] [facility] MELOXICAM 15MG TAB TAKE ONE TABLET BY MOUTH ONCE DAILY ORAL ACTIVE DALKE,MAT 2021 [facility] NITROGLYCER IN 0.4MG TAB,SUBLING UAL DISSOLVE ONE TABLET UNDER THE TONGUE EVERY 5 MINUTES NEEDED SUBLIN GUAL ACTIVE DALKE,MAT 2021 [facility] [place] [facility] OMEPRAZOLE 20MG CAP,EC TAKE 1 CAPSULE BY MOUTH EVERY MORNING 30 MINUTES BEFORE BREAKFAS T ORAL ACTIVE DALKE,MAT 2021 [facility] [facility] SILDENAFIL CITRATE 50MG TAB TAKE ONE TABLET BY MOUTH ONE HOUR BEFORE SEXUAL ACTIVITY TAKE 1 HOUR PRIOR TO SEXUAL ACTIVITY ORAL 05/30/2023 [id number] 4 STEPHANIE CHRISTIANSON 2022 6 [facility] Allergies, Adverse Reactions, Alerts Combined list of allergies from Department of Defense and Veterans Affairs facilities. It does not include entries that were removed or entered in error. Substance Category Reaction Severity Reaction type Status Date Reported Comments Source FIRE ANTS Propensity to adverse reaction (finding) active 6 [facility] [place] [facility] STRAWBERRIES Propensity to adverse reactions to food (finding) active 6 [facility] VITAMIN B COMPLEX Propensity to adverse reactions to drug (finding) active 6 [facility] Immunizations Combined list of available immunizations from the Department of Defense and Veterans Affairs facilities. Immunization Series Date Given Administered By Site Reaction Lot Number CVX Code Drug Quality Control Coordinator Status Comments Source COVID-19 (MODERNA), MRNA, LNP-S, PF, 100 MCG/0.5ML DOSE OR 50 MCG/0.25ML DOSE 2 2021 207 complet ed [facility] COVID-19 (MODERNA), MRNA, LNP-S, PF, 100 MCG/0.5ML DOSE OR 50 MCG/0.25ML DOSE 1 2021 207 complet ed [facility] [place] [facility] INFLUENZA, UNSPECIFIED FORMULATION 2021 88 complet ed [facility] [facility] FLU,3 YRS (HISTORICAL) 2013 88 complet ed Site: Left Deltoid [place] FLU,3 YRS (HISTORICAL) 2013 88 complet ed [place] FLU,3 YRS (HISTORICAL) 2011 88 complet ed [facility] FLU,3 YRS (HISTORICAL) 2011 88 complet ed Site: Left Deltoid [place] DTAP, UNSPECIFIED FORMULATION 2010 107 complet ed Site: Right Deltoid [place] INFLUENZA, UNSPECIFIED FORMULATION [id number] [facility] Encounters Combined list of: 1) Encounters from Department of Veterans Affairs facilities going backup to the last 18 months, not all VA inpatient encounters are included; 2) Encounters from the Department of Defense facilities going backup to 280 months. Location Location Details Encounter Type Encounter Number Reason For Visit Attending Provider ADM Date DC Date Status Disposition Source [facility] [facility] Outpatient Encounter [id number] 10/29 [facility] [place] [facility] Outpatient Encounter [id number] 11/20 [facility] [place] [facility] Outpatient Encounter [id number] 02/22 [facility] [place] [facility] Social History Combined list of available smoking, tobacco, and other social history from Department of Defense and Veterans Affairs facilities. Social History Type Response Date Comment Source Tobacco smoking status [facility]TO[facility] FORMER USER 07/17/2021 [facility] of [facility]2021 [facility] History of tobacco use QUIT TOBACCO USE > 7 YEARS AGO 11/02/2015 [place] History of tobacco use LIFETIME NON-TOBACCO USER 11/12/2006 [place] History of tobacco use QUIT TOBACCO USE 1-7 YEARS AGO 12/03/2005 stopped tobacco 4-5 years ago [place] History of tobacco use QUIT TOBACCO USE IN PAST YEAR 11/04/2005 neg [facility] History of tobacco use TOBACCO CESSATION: 1-5 YEARS 12/17/2004 2yrs [facility] History of tobacco use TOBACCO CESSATION: 1-5 YEARS 10/26/2003 [facility] History of tobacco use TOBACCO CESSATION: <1 YEAR 06/14/2003 continued cessation encouraged [facility] History of tobacco use TOBACCO CESSATION: <1 YEAR 03/07/2003 continued cessation encouraged [facility] History of tobacco use TOBACCO CESSATION: <1 YEAR 10/26/2002 quit ~ one month ago--continued cessation encouraged [facility] History of tobacco use TOBACCO CESSATION: <1 YEAR 08/16/2002 states quit smoking last Wed--7-2-03 [facility] History of tobacco use CURRENT SMOKER [...] AMBULATORY - MEDICINE AMBULATORY - [facility]ICI [facility]
== END 2024-05-20 15:29 | disposition home or self-care (01) ==
LOC: HO.HMGCX 15:28
PROVIDERS: PCP Internal Medicine; Visit Provider Urology
DX: Z13.89 Encounter for screening for other disorder (principal)

== ENCOUNTER 2024-06-04 14:28 | Outpatient (REF) | payer MEDICARE, SELFPAY ==
--- NOTE | ~2024-06-04 | US_ITS ---
EXAMINATION: US RETROPERITONEAL COMPLETE (RENAL) CLINICAL INFORMATION: Benign prostatic hyperplasia without lower urinary tract symptoms. COMPARISON: None available. TECHNIQUE: Real-time imaging of the kidneys and bladder. FINDINGS: RIGHT KIDNEY: 12.2 x 5.2 x 5.0 cm (SAG x AP x TRV). The kidney is normal in size, contour, and echogenicity. Renal cortical thickness is normal. There is anechoic midpole cyst with multiple septations measuring 2.3 x 2.4 x 2.2 cm. No echogenic calculi or hydronephrosis seen. LEFT KIDNEY: 12.0 x 5.5 x 6.2 cm (SAG x AP x TRV). The kidney is normal in size, contour, and echogenicity. Renal cortical thickness is normal. No calculi or focal parenchymal lesions. No hydronephrosis. BLADDER: Well distended and normal. Bilateral ureteral jets are demonstrated. Prevoid bladder volume is 280 mL. Postvoid bladder volume is 136 mL. There are echogenic bladder calculi. There measures follows 1.1 x 0.9 x 1.4 cm, 1.4 x 0.8 x 0.9 cm and 1.3 x 0.9 x 7.6 cm. Prostate: The prostate is enlarged with a volume of 10 3 mL. There are heterogenous areas of anechoic cystic lesion. 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 No echogenic renal calculi or hydronephrosis seen. Significantly enlarged prostate gland with a volume of 10 3 mL. Echogenic mobile bladder stones. Normal bilateral ureteral jets noted. Electronically signed by: Christiano Fleming MD 06/08/2024 08:34 AM EDT RP
--- OUTSIDE RECORDS SUMMARY | 2024-06-04 15:09 | XMS_ITS | Continuity of Care Document ---
Demographics Address [address] [facility] [address] [place] [address] Home Phone Phone [phone] Preferred Language en Marital Status Unknown Hinduism Affiliation Unknown Race Unknown Ethnic Group Unknown Author Name [facility] Organization [facility] Care Team Providers Care Weighter Name Role Phone [facility] Unavailable Unavailable Problems Combined list of problems [...] Comment: request MRI, ABD WHAV DEC 24 [place] Agoraphobia (SNOMED CT [id number]) [facility] [place] [facility] Aortic aneurysm screening normal Active Condition Sep 15 2 Entered By: NINO HOOPER Comment: 09/13/21 No evidence of abdominal aortic aneurysm. [facility] [place] [facility] Bipolar disorder Active Condition [place] Cataract Active Condition Aug 29 11 Entered By: CARTER AYON Comment: Surg O.U. AUGUST 20 [place] Cervicalgia Active Condition [facility] [place] [facility] Chronic low back pain Active Condition [facility] [place] [facility] Chronic pain Active Condition Mar 17, 2013 Entered By: CARTER AYON Comment: [facility] Rx Registry, NO EVENTS as of 03/16/13 [facility] [place] [facility] Colon cancer screening declined (SNOMED CT [id number]) Active Condition Mar 10, 2006 Entered By: CARTER AYON Comment: Father CRC - high-risk CRCFeb 2007 Entered By: CARTER AYON Comment: pending Colonoscopy end of APR 17 [facility] Entered By: CARTER AYON Comment: pt. now chooses to pursue Colorectal CancerJul 2007 Entered By: CARTER AYON Comment: [facility]Jul 24, 2006 Entered By: SARATH GUERRERO Comment: referd gi [place] Displacement of lumbar intervertebral disc without myelopathy Active Condition Dec 03, 2005 Entered By: CARTER AYON Comment: +Radicular Sx left LE, post asp L5-S1Jul 2006 Entered By: CARTER AYON Comment: never had surg; has declined disc surg in past [place] DJD Active Condition Dec 03 Entered By: CARTER AYON Comment: C-Spine; also HNP C-SpineMar 10, 2006 Entered By: CARTER AYON Comment: C4-C5Jul 2006 Entered By: CARTER AYON Comment: never a had surgJul 24, 2006 Entered By: SARATH GUERRERO Comment: will need to bring back to talk about pain meds,tryvicod in [place] EKG Active Condition Jul 20 Entered By: CARTER AYON Comment: EKG, JULY 21; NSR [place] Enlarged prostate Active [facility] [place] [facility] Erectile dysfunction Active Condition [facility] [place] [facility] Generalized anxiety disorder Active [facility] [place] [facility] GERD Active Condition [place] H/o of Seizure Disorder(mini seizure) Active Condition [...] By: CARTER AYON Comment: CAD; declined CABG [place] Housing lack Active Condition [place] [facility] [place] [facility] Hyperlipidemia Active Condition Jul 122021 Entered By: HELDER NORIEGA Comment: Total chol/HDL/LDL/ trigs: 159/34/97/141 (08/03/21) --> ASCVD 18.4%, goal LDL < 70. Will have f/u to discuss statin therapy, prior CV histoyr, and FHx. 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 Medication Management Active Condition Mar 14, 2009 Entered By: CARTER AYON Comment: Signed Opioid Agreement 14 MAR 2009 [place] Unspecified episodic mood Disorder (ICD-9-CM 296.90) [facility] Bipolar Disorder NOS * (ICD-9-CM 296.7/296.80) Inactive Condition 05/10/2009 [facility] Medications Combined list of outpatient medications from Department of Defense and Veterans Affairs facilities.Medications provided include 1) outpatient medications from the last 15 months, and 2) patient-reported medications. Medication Details Route Status Patient Instructions Prescription Expires Prescription Number Last Dispense Date Ordering Provider Order Date Order Qty Source FUROSEMIDE 20MG TAB TAKE ONE TABLET BY MOUTH ONCE DAILY ORAL ACTIVE DALKE,MAT 2021 [facility] GABAP[facility] 300MG CAP TAKE 2 CAPSULES BY MOUTH TWICE DAILY ORAL ACTIVE DALKE,MAT 2021 [facility] MELOXICAM 15MG TAB TAKE ONE TABLET BY MOUTH ONCE DAILY ORAL ACTIVE DALKE,MAT 2021 [facility] NITROGLYCER IN 0.4MG TAB,SUBLING UAL DISSOLVE ONE TABLET UNDER THE TONGUE EVERY 5 MINUTES NEEDED SUBLIN GUAL ACTIVE DALKE,MAT 2021 [facility] OMEPRAZOLE 20MG CAP,EC TAKE 1 CAPSULE BY MOUTH EVERY MORNING 30 MINUTES BEFORE BREAKFAS T ORAL ACTIVE DALKE,MAT 2021 [facility] SILDENAFIL CITRATE 50MG TAB TAKE ONE TABLET BY MOUTH ONE HOUR BEFORE SEXUAL ACTIVITY TAKE 1 HOUR PRIOR TO SEXUAL ACTIVITY ORAL 05/30/2023 [id number] 4 STEPHANIE CHRISTIANSON 2022 6 [facility] Allergies, Adverse Reactions, Alerts Combined list of allergies from Department of Defense and Veterans Affairs facilities. It does not include entries that were removed or entered in error. Substance Category Reaction Severity Reaction type Status Date Reported Comments Source FIRE ANTS Propensity to adverse reaction (finding) active 6 [facility] [place] [facility] STRAWBERRIES Propensity to adverse reactions to food (finding) active 6 [facility] [place] [facility] VITAMIN B COMPLEX Propensity to adverse reactions to drug (finding) active 6 [facility] Immunizations Combined list of available immunizations from the Department of Defense and Veterans Affairs facilities. Immunization Series Date Given Administered By Site Reaction Lot Number CVX Code Drug Electromechanical Inspector Status Comments Source COVID-19 (MODERNA), MRNA, LNP-S, PF, 100 MCG/0.5ML DOSE OR 50 MCG/0.25ML DOSE 2 2021 207 complet ed [facility] COVID-19 (MODERNA), MRNA, LNP-S, PF, 100 MCG/0.5ML DOSE OR 50 MCG/0.25ML DOSE 1 2021 207 complet ed [facility] INFLUENZA, UNSPECIFIED FORMULATION 2021 88 complet ed [facility] FLU,3 YRS (HISTORICAL) 2013 88 complet ed Site: Left Deltoid [place] FLU,3 YRS (HISTORICAL) 2013 88 complet ed [place] FLU,3 YRS (HISTORICAL) 2011 88 [facility] FLU,3 YRS (HISTORICAL) 2011 88 complet ed Site: Left Deltoid [place] DTAP, UNSPECIFIED FORMULATION 2010 107 complet ed Site: Right Deltoid [place] INFLUENZA, UNSPECIFIED FORMULATION 1999 88 complet ed [id number] [facility] Encounters Combined list of: 1) Encounters from Department of Veterans Affairs facilities going backup to the last 18 months, not all VA inpatient encounters are included; 2) Encounters from the Department of Defense facilities going backup to 280 months. Location Location Details Encounter Type Encounter Number Reason For Visit Attending Provider ADM Date DC Date Status Disposition Source [facility] Outpatient Encounter [id number] 02/22 [facility] Social History Combined list of available smoking, tobacco, and other social history from Department of Defense and Veterans Affairs facilities. Social History Type Response Date Comment Source Tobacco smoking status [facility] [place]-TOBACCO FORMER USER 07/17/2021 [facility] History of tobacco use [place]-TOBACCO QUIT 15 YRS OR MORE 07/17/2021 [facility] History of tobacco use QUIT TOBACCO USE > 7 YEARS AGO 11/02/2015 [place] History of tobacco use LIFETIME NON-TOBACCO USER 11/12/2006 [place] History of tobacco use QUIT TOBACCO USE 1-7 YEARS AGO 12/03/2005 stopped tobacco 4-5 years ago [place] History of tobacco use QUIT TOBACCO USE IN PAST YEAR 11/04/2005 neg [facility] History of tobacco use TOBACCO CESSATION: 1-5 YEARS 12/17/2004 2yrs [facility] History of tobacco use TOBACCO CESSATION: 1-5 YEARS 10/26/2003 [facility] History of tobacco use TOBACCO CESSATION: <1 YEAR 06/14/2003 continued cessation encouraged [facility] History of tobacco use TOBACCO CESSATION: <1 YEAR 03/07/2003 continued cessation encouraged [facility] History of tobacco use TOBACCO CESSATION: <1 YEAR 10/26/2002 quit ~ one month ago--continued cessation encouraged [facility] History of tobacco use TOBACCO CESSATION: <1 YEAR 08/16/2002 [facility] quit smoking last Fri--7-2-03 [facility] History of tobacco use CURRENT SMOKER 05/17/2002 1 ppd Ultra lights, is trying to quit. [facility] History of tobacco use CURRENT SMOKER 04/13/2002 1 PPD. MIGUEL ÁNGEL EUBANKS History of tobacco use CURRENT SMOKER 04/05/2002 smokes one pack per day [facility] History of tobacco use CURRENT SMOKER 03/16/2002 1ppd MIGUEL ÁNGEL EUBANKS History of tobacco use CURRENT SMOKER 01/26/2002 smokes one pack per day [facility] History of tobacco use TOBACCO USER 09/30/2001 smokes one pack per day [facility] Plan of Care List of future care activities from Department of Veterans Affairs facilities. Additional future care activities may be listed in the Assessment and Plan section. Date/Time Care Activity Care Activity Detail Facili ty 07/02/2024 AMBULATORY - MEDICINE AM[facility]
--- OUTSIDE RECORDS SUMMARY | 2024-06-04 15:09 | XMS_ITS | Clinical Summary ---
Author Organization [facility] [[email or web address]] Address [address] [place] [id number] Care Team Providers Care Oral Surgeon Name Role Phone Unavailable Primary Care Provider [...] e xtremity edema Psoriasis 05/08/2015 DX:Psoriasis Seizures ([facility] V24, CMS/HCC V28) 11/13/2015 DX:Seizures ([facility]) Family History Medical History Relation Name Comments [...]
== END 2024-06-04 14:29 | disposition home or self-care (01) ==
LOC: HO.HMGCX 14:28
PROVIDERS: PCP Internal Medicine; Visit Provider Nurse Practitioner Family
DX: N40.0 Benign prostatic hyperplasia without lower urinary tract symptoms (principal); R35.1 Nocturia
CPT/HCPCS: 76770

== ENCOUNTER → 2024-06-04 14:29 | Outpatient (BNV) | payer MEDICARE, SELFPAY | PROVIDERS: PCP Internal Medicine; Visit Provider Radiology Diagnostic Radiology | DX: N28.1 Cyst of kidney, acquired (principal); N40.0 Benign prostatic hyperplasia without lower urinary tract symptoms; N21.0 Calculus in bladder | CPT/HCPCS: 76770 ==

== ENCOUNTER 2024-08-09 15:58 | Outpatient (AMB) | payer MEDICARE, SELFPAY ==
--- OUTSIDE RECORDS SUMMARY | 2024-08-09 11:00 | XMS_ITS | Continuity of Care Document ---
Demographics Address [address] [place] [address] Home Phone Phone [phone] Preferred Language en Marital Status Unknown Congregational Affiliation Unknown Race Unknown Ethnic Group Unknown Author Name [facility] Organization [facility] Care Team Providers Care Crew Foreman Name Role Phone [facility] Unavailable Unavailable Problems Combined list of problems [...] Comment: request MRI, ABD WHAV DEC 24 [place] Agoraphobia (SNOMED CT [id number]) [facility] Aortic aneurysm screening normal Active Condition Sep 15 2 Entered By: NINO HOOPER Comment: 09/13/21 No evidence of abdominal aortic aneurysm. [facility] Bipolar disorder Active Condition [place] Cataract Active Condition Aug 29 11 Entered By: CARTER AYON Comment: Surg O.U. AUGUST 20 [place] Cervicalgia Active Condition [facility] Chronic low back pain Active Condition [facility] Chronic pain Active Condition Mar 17, 2013 Entered By: CARTER AYON Comment: [facility] Rx Registry, NO EVENTS as of 03/16/13 [facility] Colon cancer screening declined (SNOMED CT [id number]) Active Condition Mar 10, 2006 Entered By: CARTER AYON Comment: Father CRC - high-risk CRCFeb 2007 Entered By: CARTER AYON Comment: pending Colonoscopy end of APR 17 [facility] HospJul 2007 Entered By: CARTER AYON Comment: pt. now chooses to pursue Colorectal CancerJul 2007 Entered By: CARTER AYON Comment: [facility])Jul 24, 2006 Entered By: SARATH GUERRERO Comment: referd gi [place] Displacement of lumbar intervertebral disc without myelopathy Active Condition Dec 03, 2005 Entered By: CARTER AYON Comment: +Radicular Sx left LE, post asp L5-S1Jul 2006 Entered By: CARTER AYON Comment: never had surg; has declined disc surg in past [place] DJD Active Condition Dec 03 Entered By: CARTER AYON Comment: C-Spine; also HNP C-SpineMar 10, 2006 Entered By: CARTER AYON Comment: C4-C5Jul 2006 Entered By: CARTER AYON Comment: never a had surgJul 24, 2006 Entered By: SARATH GUERRERO Comment: will need to bring back to talk about pain meds,tryvicod in [place] EKG Active Condition Jul 20 Entered By: CARTER AYON Comment: EKG, JULY 21; NSR [place] Enlarged prostate Active [facility] [place] [facility] Erectile dysfunction Active Condition [facility] Generalized anxiety disorder Active Condition [facility] GERD Active Condition [place] H/o of Seizure Disorder(mini seizure) Active Condition [...] By: CARTER AYON Comment: CAD; declined CABG [place] Housing lack Active Condition [facility] [place] [facility] Hyperlipidemia Active Condition Jul 122021 Entered By: HELDER NORIEGA Comment: Total chol/HDL/LDL/ trigs: 159/34/97/141 (08/03/21) --> ASCVD 18.4%, goal LDL < 70. Will have f/u to discuss statin therapy, prior CV histoyr, and FHx. [place] Inguinal hernia Active Condition Sep 15, 2021 Entered By: NINO HOOPER Comment: Left inguinal hernia, [facility] current use of non-steroidal anti-inflammatory drug [facility] Medication Management Active Condition Mar 14, 2009 Entered By: CARTER AYON Comment: Signed Opioid Agreement 14 MAR 2009 [place] Unspecified episodic mood Disorder (ICD-9-CM 296.90) [facility] Bipolar Disorder NOS * (ICD-9-CM 296.7/296.80) Inactive Condition 05/10/2009 [facility] Medications Combined list of outpatient medications from Department of Defense and Veterans Affairs facilities.Medications provided include 1) outpatient medications from the last 15 months, and 2) patient-reported medications. Medication Details Route Status Patient Instructions Prescription Expires Prescription Number Last Dispense Date Ordering Provider Order Date Order Qty Source FUROSEMIDE 20MG TAB TAKE ONE TABLET BY MOUTH ONCE DAILY ORAL ACTIVE DALKE,MAT 2021 [facility] GABAPENTIN 300MG CAP TAKE 2 CAPSULES BY MOUTH TWICE DAILY ORAL ACTIVE DALKE,MAT 2021 [facility] MELOXICAM 15MG TAB TAKE ONE TABLET BY MOUTH ONCE DAILY ORAL ACTIVE DALKE,MAT 2021 [facility] NITROGLYCER IN 0.4MG TAB,SUBLING UAL DISSOLVE ONE TABLET UNDER THE TONGUE EVERY 5 MINUTES NEEDED SUBLIN GUAL ACTIVE DALKE,MAT 2021 [facility] OMEPRAZOLE 20MG CAP,EC TAKE 1 CAPSULE BY MOUTH EVERY MORNING 30 MINUTES BEFORE BREAKFAS T ORAL ACTIVE DALKE,MAT 2021 [facility] SILDENAFIL CITRATE 50MG TAB TAKE ONE TABLET BY MOUTH ONE HOUR BEFORE SEXUAL ACTIVITY TAKE 1 HOUR PRIOR TO SEXUAL ACTIVITY ORAL 05/30/2023 [id number] STEPHANIE CHRISTIANSON 2022 6 [facility] Allergies, Adverse Reactions, Alerts Combined list of allergies from Department of Defense and Veterans Affairs facilities. It does not include entries that were removed or entered in error. Substance Category Reaction Severity Reaction type Status Date Reported Comments Source FIRE ANTS Propensity to adverse reaction (finding) active 6 [facility] STRAWBERRIES Propensity to adverse reactions to food (finding) active 6 [facility] VITAMIN B COMPLEX Propensity to adverse reactions to drug (finding) active 6 [facility] Immunizations Combined list of available immunizations from the Department of Defense and Veterans Affairs facilities. Immunization Series Date Given Administered By Site Reaction Lot Number CVX Code Drug Enrollment Representative Status Comments Source COVID-19 (MODERNA), MRNA, LNP-S, PF, 100 MCG/0.5ML DOSE OR 50 MCG/0.25ML DOSE 2 2021 207 complet ed [facility] COVID-19 (MODERNA), MRNA, LNP-S, PF, 100 MCG/0.5ML DOSE OR 50 MCG/0.25ML DOSE 1 2021 207 complet ed [facility] INFLUENZA, UNSPECIFIED FORMULATION 2021 88 complet ed [facility] FLU,3 YRS (HISTORICAL) 2013 88 complet ed Site: Left Deltoid [place] FLU,3 YRS (HISTORICAL) 2013 88 complet ed [place] FLU,3 YRS (HISTORICAL) 2011 88 complet ed [facility] FLU,3 YRS (HISTORICAL) 2011 88 complet ed Site: Left Deltoid [place] DTAP, UNSPECIFIED FORMULATION 2010 107 complet ed Site: Right Deltoid [place] INFLUENZA, UNSPECIFIED FORMULATION 1999 88 complet ed [id number] [facility] Encounters Combined list of: 1) Encounters from Department of Veterans Affairs facilities going backup to the last 18 months, not all VA inpatient encounters are included; 2) Encounters from the Department of Defense facilities going backup to 280 months. Location Location Details Encounter Type Encounter Number Reason For Visit Attending Provider ADM Date DC Date Status Disposition Source [facility] Outpatient Encounter [id number] 02/22 [facility] Social History Combined list of available smoking, tobacco, and other social history from Department of Defense and Veterans Affairs facilities. Social History Type Response Date Comment Source Tobacco smoking status NHIS MO-TOBACCO FORMER USER 07/17/2021 [facility] History of tobacco use MO-TOBACCO QUIT 15 YRS OR MORE 07/17/2021 [facility] History of tobacco use QUIT TOBACCO USE > 7 YEARS AGO 11/02/2015 [place] History of tobacco use LIFETIME NON-TOBACCO USER 11/12/2006 [place] History of tobacco use QUIT TOBACCO USE 1-7 YEARS AGO 12/03/2005 stopped tobacco 4-5 years ago [place] History of tobacco use QUIT TOBACCO USE IN PAST YEAR 11/04/2005 neg [facility] History of tobacco use TOBACCO CESSATION: 1-5 YEARS 12/17/2004 2yrs LAW [facility] History of tobacco use TOBACCO CESSATION: 1-5 YEARS 10/26/2003 [facility] History of tobacco use TOBACCO CESSATION: <1 YEAR 06/14/2003 continued cessation encouraged [facility] History of tobacco use TOBACCO CESSATION: <1 YEAR 03/07/2003 continued cessation encouraged [facility] History of tobacco use TOBACCO CESSATION: <1 YEAR 10/26/2002 quit ~ one month ago--continued cessation encouraged LWA [facility] History of tobacco use TOBACCO CESSATION: <1 YEAR 08/16/2002 [facility] quit smoking last Fri--7-2-03 [facility] History of tobacco use CURRENT SMOKER 05/17/2002 1 ppd Ultra lights, is trying to quit. [facility] History of tobacco use CURRENT SMOKER 04/13/2002 1 PPD. MIGUEL [facility]NGEL [facility] History of tobacco use CURRENT SMOKER 04/05/2002 smokes one pack per day [facility] History of tobacco use CURRENT SMOKER 03/16/2002 1ppd MIGUEL ÁNGEL EU[facility] History of tobacco use CURRENT SMOKER 01/26/2002 smokes one pack per day [facility] History of tobacco use TOBACCO USER 09/30/2001 smokes one pack per day [facility] Plan of Care List of future care activities from Department of Veterans Affairs facilities. Additional future care activities may be listed in the Assessment and Plan section. Date/Time Care Activity Care Activity Detail Facili ty 08/11/2024 AMBULATORY - MEDICINE AMBULATORY - MEDICI [facility]
--- OUTSIDE RECORDS SUMMARY | 2024-08-09 16:01 | XMS_ITS | Clinical Summary ---
Author Organization [facility] Address [address] [place] [id number] Care Team Providers Care Fisher Dip Net Name Role Phone Unavailable Primary Care Provider [...] e xtremity edema Psoriasis 05/08/2015 DX:Psoriasis Seizures ([facility] V24, CMS/HCC V28) 11/13/2015 DX:Seizures ([facility]) Family History Medical History Relation Name Comments [...]
--- NOTE | 2024-08-09 16:02 | MHC.OFFVIS ---
Intake Visit Reasons: follow up/US Intake Note: Patient is present for a follow up/US Renal US 06/04 Urology Meds: Tamsulosin Antibiotic Allergies: None Blood Thinners: Aspirin PVR:77ml Service Writer Required: No Accompanied by: Self / Same As Patient Allergies No Known Allergies Allergy (Verified 08/09/24 16:04) Medication List - Last Reconciled 08/09/24 by Dylon Gordon MD ascorbic acid (vitamin C) (Vitamin C) 500 mg PO BID aspirin 81 mg PO DAILY cholecalciferol (vitamin D3) (Vitamin D3) 25 mcg PO DAILY cyanocobalamin (vitamin B-12) (Vitamin B-12) 1,000 mcg PO DAILY fish,bora,flax oils-om3,6,9no1 1,200 mg (Lenora 3-6-9) caps PO ginkgo biloba 40 mg PO DAILY ginseng 250 mg PO DAILY magnesium 1,000 mg PO BID meloxicam 15 mg PO DAILY omeprazole 20 mg PO DAILY tamsulosin 0.4 mg PO BID 90 days HPI Comments Details: 08/09/24 History of Present Illness - The patient is a 74-year-old male presenting with urinary symptoms and concerns regarding prostate and bladder health. - The patient has a history of benign prostatic hyperplasia, confirmed by ultrasound showing an enlarged prostate. - Recent ultrasound also revealed the presence of bladder stones. - The patient reports hearing loss, with complete loss in one ear and partial blockage in the other. - Current medications include tamsulosin BID and OTC saw palmetto, which the patient reports help with urinary flow. - The patient has concerns about taking dutasteride due to perceived cancer risk, despite updated literature not supporting this association. - The patient is also taking furosemide, prescribed by primary care. Results - Ultrasound: Enlarged prostate and bladder stones detected. - Bladder scan PVR 77 mL Discussion Notes I discussed with the patient the findings of the ultrasound, which showed an enlarged prostate and bladder stones. We talked about the option of performing a cystoscopy to better evaluate the bladder stones. The patient declines today but will reschedule. [birth year]-69-pcic-old male presenting with benign prostatic hyperplasia (BPH) for follow-up. He is currently managed with tamsulosin twice daily and reports an increase in nocturia, describing frequent nighttime urination at least three or more times per night. The previous PSA test showed a level of 1.93 mg/mL, and today's urinalysis was negative for infection, indicating no current urinary tract infection. He mentioned a history with furosemide, which increases his urination frequency. He prefers non-invasive treatment options and mentioned past surgical experience which influences his treatment decisions. I will order an ultrasound of the bladder, prostate, and kidneys to assess the urinary tract in a comprehensive manner. This imaging will help ascertain the current status of the prostate and rule out other anatomical contributors to his symptoms. Depending on these results, a cystoscopy may be scheduled in the future to directly examine the urinary tract. Meanwhile, we'll continue with the current tamsulosin dosage and add a medication aimed at gradually shrinking the prostate. On fu consider cysto. Urinary Symptoms Review - Nocturia occurring three or more times per night. - Urine clear with no signs of infection today. - Taking tamsulosin twice daily (morning and night). - Previous use of furosemide, known to increase urination frequency. Results - Labs: PSA level on 03/15/2024 was 1.93 mg/mL. - Tests: Urinalysis today was negative for leukocytes and blood. [facility] DJD (degenerative joint disease) Agoraphobia Hx of seizure disorder Hyperlipidemia GERD (gastroesophageal reflux disease) Anxiety Agent orange exposure Colonoscopy refused Lower back pain Renal cyst Benign liver cyst Surgical History History of bilateral inguinal hernia repair Hx of colonoscopy History of bilateral cataract extraction Family History Mother Diabetes Breast cancer Substance use disorder Social History Housing: Apartment Patient Tobacco Use Status: Former Tobacco user e-Cigarette/Vaping Use: Never Used service: Yes Current occupational status: retired Cognitive needs: No Hearing needs: No Vision needs: No Review of Systems Const All systems reviewed & are unremarkable except as noted in HPI and below Reports no additional complaints Eyes Reports no additional complaints ENT Reports no additional complaints Card Reports no additional complaints Resp Reports no additional complaints GI Reports no additional complaints Reports as per HPI Musc Reports no additional complaints Skin/Breast Reports system reviewed and no additional complaints, except as documented Neuro Reports no additional complaints Psych Reports no additional complaints Endo Reports no additional complaints James/Lymph Reports no additional complaints Aller/Immun Reports no additional complaints Results AMB Urinalysis, Automated UA Leukoctes 0 Naomie/uL Last Edit by Crystal Omer on 08/09/24 16:32 UA Nitrite Negative Last Edit by Crystal Omer on 08/09/24 16:32 UA Urobilinogen 3.5 mg/dL Last Edit by Crystal Omer on 08/09/24 16:32 UA Protein 0 mg/dL Last Edit by Crystal Omer on 08/09/24 16:32 UA pH 6.0 Last Edit by Crystal Omer on 08/09/24 16:32 UA Blood 0 Gideon/uL Last Edit by Crystal Omer on 08/09/24 16:32 UA Specific Sanders 1.015 Last Edit by Crystal Omer on 08/09/24 16:32 UA Ketone Negative Last Edit by Crystal Omer on 08/09/24 16:32 UA Bilirubin 0 mg/dL Last Edit by Crystal Omer on 08/09/24 16:32 UA Glucose 0 mg/dL Last Edit by Crystal Omer on 08/09/24 16:32 Results Reviewed Results Reviewed: Date of Service: 06/04/24 US RETROPERITONEAL COMPLETE (RENAL) CLINICAL INFORMATION: Benign prostatic hyperplasia without lower urinary tract symptoms. COMPARISON: None available. TECHNIQUE: Real-time imaging of the kidneys and bladder. FINDINGS: RIGHT KIDNEY: 12.2 x 5.2 x 5.0 cm (SAG x AP x TRV). The kidney is normal in size, contour, and echogenicity. Renal cortical thickness is normal. There is anechoic midpole cyst with multiple septations measuring 2.3 x 2.4 x 2.2 cm. No echogenic calculi or hydronephrosis seen. LEFT KIDNEY: 12.0 x 5.5 x 6.2 cm (SAG x AP x TRV). The kidney is normal in size, contour, and echogenicity. Renal cortical thickness is normal. No calculi or focal parenchymal lesions. No hydronephrosis. BLADDER: Well distended and normal. Bilateral ureteral jets are demonstrated. Prevoid bladder volume is 280 mL. Postvoid bladder volume is 136 mL. There are echogenic bladder calculi. There measures follows 1.1 x 0.9 x 1.4 cm, 1.4 x 0.8 x 0.9 cm and 1.3 x 0.9 x 7.6 cm. Prostate: The prostate is enlarged with a volume of 10 3 mL. There are heterogenous areas of anechoic cystic lesion. 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 No echogenic renal calculi or hydronephrosis seen. Significantly enlarged prostate gland with a volume of 10 3 mL. Echogenic mobile bladder stones. Normal bilateral ureteral jets noted. Assessment & Plan Assessment & Plan (1) BPH (benign prostatic hyperplasia): Code(s): N40.0 - Benign prostatic hyperplasia without lower urinary tract symptoms Category: Medical (2) Nocturia more than twice per night: Code(s): R35.1 - Nocturia Category: Medical (3) Bladder calculus: Code(s): N21.0 - Calculus in bladder Category: Medical Plan Plan - Schedule a cystoscopy to further evaluate bladder stones. - Monitor PVR with bladder scans - Continue current medications: tamsulosin and saw palmetto for urinary flow management. - Provided educational material on cystoscopy for patient review. Orders: Orders AMB Urinalysis Automated Today Z13.9 - Encounter for screening, unspecified Patient Instructions: The patient had an opportunity to ask questions regarding treatment plan. The patient expressed understanding and agreement with the above treatment plan. The patient is aware they should contact our office by phone for worsening of their current condition or the appearance of new symptoms. Compliance is encouraged with any medications and followup testing that is ordered. It is a privilege to be allowed the opportunity to participate in the urologic care of your patient. If you have any questions or concerns regarding treatment for the above conditions please do not hesitate to contact me. The office telephone contact is [phone]. This note is constructed in part using voice recognition software. While every effort has been made to ensure accuracy locker room manager errors may have been included. Yours sincerely, Dylon Gordon MD Scribe Plan - Not visible on output: Patient was informed and verbally consented to the use of an ambient scribe for clinic note documentation during this visit. Coding Level of Care Code Est Pt Level 4 (15222) Complex EM visit Add On G2211 Diagnoses BPH (benign prostatic hyperplasia) N40.0 Nocturia more than twice per night R35.1 Bladder calculus N21.0
== END 2024-08-09 16:21 | disposition home or self-care (01) ==
LOC: HO.HUSH 15:59
PROVIDERS: PCP Internal Medicine; Visit Provider Urology
DX: N40.0 Benign prostatic hyperplasia without lower urinary tract symptoms (principal); R35.1 Nocturia; N21.0 Calculus in bladder; Z13.9 Encounter for screening, unspecified
CPT/HCPCS: 99214; G2211

== ENCOUNTER → 2024-08-09 15:58 | Outpatient (BNVA) | payer MEDICARE, SELFPAY | PROVIDERS: PCP Internal Medicine; Visit Provider Urology | DX: N40.1 Benign prostatic hyperplasia with lower urinary tract symptoms (principal); R35.1 Nocturia; N21.0 Calculus in bladder; Z79.899 Other long term (current) drug therapy | CPT/HCPCS: 81003; 99212 ==

== ENCOUNTER 2024-08-11 13:48 | Outpatient (AMB) | payer MEDICARE, SELFPAY ==
--- OUTSIDE RECORDS SUMMARY | 2024-08-11 09:19 | XMS_ITS | Continuity of Care Document ---
Demographics Address [address] [facility] [address] [place] [address] Home Phone Phone [phone] Preferred Language en Marital Status Unknown Yarsanism Affiliation Unknown Race Unknown Ethnic Group Unknown Author Name [facility] Organization [facility] Care Team Providers Care Intravenous Therapy Nurse Name Role Phone [facility] Unavailable Unavailable Problems Combined list of problems [...] Comment: request MRI, ABD WHAV DEC 24 [place] Agoraphobia (SNOMED CT [id number]) [facility] [place] [facility] Aortic aneurysm screening normal Active Condition Sep 15 2 Entered By: NINO HOOPER Comment: 09/13/21 No evidence of abdominal aortic aneurysm. [facility] [place] [facility] Bipolar disorder Active Condition [place] Cataract Active Condition Aug 29 Entered By: CARTER AYON Comment: Surg O.U. AUGUST 20 [place] Cervicalgia Active Condition [facility] [place] [facility] Chronic low back pain Active Condition [facility] [place] [facility] Chronic pain Active Condition Mar 17, 2013 Entered By: CARTER AYON Comment: [place] Rx Registry, NO EVENTS as of 03/16/13 [facility] [place] [facility] Colon cancer screening declined (SNOMED CT [id number]) Active Condition Mar 10, 2006 Entered By: CARTER AYON Comment: Father CRC - high-risk CRCFeb 2007 Entered By: CARTER AYON Comment: pending Colonoscopy end of APR 17 [facility] Entered By: CARTER AYON Comment: pt. now chooses to pursue Colorectal CancerJul 2007 Entered By: CARTER AYON Comment[facility] [employer])Jul 24, 2006 Entered By: SARATH GUERRERO Comment: referd gi [place] Displacement of lumbar intervertebral disc without myelopathy Active Condition Dec 03, 2005 Entered By: CARTER AYON Comment: +Radicular Sx left LE, post asp L5-S1Jul 2006 Entered By: CARTER AYON Comment: never had surg; has declined disc surg in past [place] DJD Active Condition Dec 03 Entered By: CARTER AYON Comment: C-Spine; also HNP C-SpineMar 10, 2006 Entered By: CARTER AYON Comment: C4-C5Jul 2006 Entered By: CARTER AYON Comment: never a had surgJul 24, 2006 Entered By: SARATH GUERRERO Comment: will need to bring back to talk about pain meds,tryvicod in [place] EKG Active Condition Jul 20 Entered By: CARTER AYON Comment: EKG, JULY 21; NSR [place] Enlarged prostate Active [facility] [place] [facility] Erectile dysfunction Active [facility] [place] [facility] Generalized anxiety disorder Active [facility] [place] [facility] GERD Active Condition [place] H/o of Seizure Disorder(mini seizure) Active Condition [...] By: CARTER AYON Comment: CAD; declined CABG [place] Housing lack Active Condition [place] [facility] [place] [facility] Hyperlipidemia Active Condition Jul 122021 Entered By: HELDER NORIEGA Comment: Total chol/HDL/LDL/ trigs: 159/34/97/141 (08/03/21) --> ASCVD 18.4%, goal LDL < 70. Will have f/u to discuss statin therapy, prior CV histoyr, and FHx. [place] Inguinal hernia Active Condition Sep 15, 2021 Entered By: NINO HOOPER Comment: Left inguinal hernia, following with NonVA Gen Surg. [facility] current use of non-steroidal anti-inflammatory drug Active [facility] Medication Management Active Condition Mar 14, 2009 Entered By: CARTER AYON Comment: Signed Opioid Agreement 14 MAR 2009 [place] Unspecified episodic mood Disorder (ICD-9-CM 296.90) [facility] Bipolar Disorder NOS * (ICD-9-CM 296.7/296.80) Inactive Condition 05/10/2009 [facility] Medications Combined list of outpatient medications from Department of Defense and Veterans Affairs facilities.Medications provided include 1) outpatient medications from the last 15 months, and 2) patient-reported medications. Medication Details Route Status Patient Instructions Prescription Expires Prescription Number Last Dispense Date Ordering Provider Order Date Order Qty Source FUROSEMIDE 20MG TAB TAKE ONE TABLET BY MOUTH ONCE DAILY ORAL ACTIVE DALKE,MAT 2021 [facility] [place] GABAPENTIN 300MG CAP TAKE 2 CAPSULES BY MOUTH TWICE DAILY ORAL ACTIVE DALKE,MAT 2021 [facility] MELOXICAM 15MG TAB TAKE ONE TABLET BY MOUTH ONCE DAILY ORAL ACTIVE DALKE,MAT 2021 [facility] [place] [facility] NITROGLYCER IN 0.4MG TAB,SUBLING UAL DISSOLVE ONE TABLET UNDER THE TONGUE EVERY 5 MINUTES NEEDED SUBLIN GUAL ACTIVE DALKE,MAT 2021 [facility] [place] OMEPRAZOLE 20MG CAP,EC TAKE 1 CAPSULE BY MOUTH EVERY MORNING 30 MINUTES BEFORE BREAKFAS T ORAL ACTIVE DALKE,MAT 2021 [facility] [place] [facility] SILDENAFIL CITRATE 50MG TAB TAKE ONE TABLET BY MOUTH ONE HOUR BEFORE SEXUAL ACTIVITY TAKE 1 HOUR PRIOR TO SEXUAL ACTIVITY ORAL 05/30/2023 [id number] 4 STEPHANIE CHRISTIANSON 2022 6 [facility] Allergies, Adverse Reactions, Alerts Combined list of allergies from Department of Defense and Veterans Affairs facilities. It does not include entries that were removed or entered in error. Substance Category Reaction Severity Reaction type Status Date Reported Comments Source FIRE ANTS Propensity to adverse reaction (finding) active 6 [facility] STRAWBERRIES Propensity to adverse reactions to food (finding) active 6 [facility] VITAMIN B COMPLEX Propensity to adverse reactions to drug (finding) active 6 [facility] [facility] Immunizations Combined list of available immunizations from the Department of Defense and Veterans Affairs facilities. Immunization Series Date Given Administered By Site Reaction Lot Number CVX Code Drug Burrer Machine Status Comments Source COVID-19 (MODERNA), MRNA, LNP-S, PF, 100 MCG/0.5ML DOSE OR 50 MCG/0.25ML DOSE 2 2021 207 complet ed [facility] COVID-19 (MODERNA), MRNA, LNP-S, PF, 100 MCG/0.5ML DOSE OR 50 MCG/0.25ML DOSE 1 2021 207 complet ed [facility] INFLUENZA, UNSPECIFIED FORMULATION 2021 88 complet ed [facility] FLU,3 YRS (HISTORICAL) 2013 88 complet ed Site: Left Deltoid [place] FLU,3 YRS (HISTORICAL) 2013 88 complet ed [place] FLU,3 YRS (HISTORICAL) 2011 88 [facility] FLU,3 YRS (HISTORICAL) 2011 88 complet ed Site: Left Deltoid [place] DTAP, UNSPECIFIED FORMULATION 2010 107 complet ed Site: Right Deltoid [place] INFLUENZA VIRUS VACCINE, 3YR AND OLDER (HISTORICAL) 1999 88 complet ed [facility] Encounters Combined list of: 1) Encounters from Department of Veterans Affairs facilities going backup to the last 18 months, not all VA inpatient encounters are included; 2) Encounters from the Department of Defense facilities going backup to 280 months. Location Location Details Encounter Type Encounter Number Reason For Visit Attending Provider ADM Date DC Date Status Disposition Source [facility] En[facility] [id number] 02/22 [facility] [place] [facility] Social History Combined list of available smoking, tobacco, and other social history from Department of Defense and Veterans Affairs facilities. Social History Type Response Date Comment Source Tobacco smoking status NHIS [place]-TOBACCO FORMER USER 07/17/2021 [facility] OR MORE 07[facility]17/2021 [facility] History of tobacco use QUIT TOBACCO USE > 7 YEARS AGO 11/02/2015 [place] History of tobacco use LIFETIME NON-TOBACCO USER 11/12/2006 [place] History of tobacco use QUIT TOBACCO USE 1-7 YEARS AGO 12/03/2005 stopped tobacco 4-5 years ago [place] History of tobacco use QUIT TOBACCO USE IN PAST YEAR 11/04/2005 neg [facility] History of tobacco use TOBACCO CESSATION: 1-5 YEARS 12/17/2004 2yrs [facility] History of tobacco use TOBACCO CESSATION: 1-5 YEARS 10/26/2003 [facility] History of tobacco use TOBACCO CESSATION: <1 YEAR 06/14/2003 continued cessation encouraged [facility] History of tobacco use TOBACCO CESSATION: <1 YEAR 03/07/2003 continued cessation encouraged [facility] History of tobacco use TOBACCO CESSATION: <1 YEAR 10/26/2002 quit ~ one month ago--continued cessation encouraged [facility] History of tobacco use TOBACCO CESSATION: <1 YEAR 08/16/2002 [facility] quit smoking last Fri--7-2-03 [facility] History of tobacco use CURRENT SMOKER 05/17/2002 1 ppd Ultra lights, is trying to quit. [facility] History of tobacco use CURRENT SMOKER 04/13/2002 1 PPD. MIGUEL ÁNGEL [place] History of tobacco use CURRENT SMOKER 04/05/2002 smokes one pack per day [facility] History of tobacco use CURRENT SMOKER 03/16/2002 1ppd [place]EL Á[place]EL [place] History of tobacco use CURRENT SMOKER 01/26/2002 smokes one pack per day [facility] History of tobacco use TOBACCO USER 09/30/2001 smokes one pack per day [facility] Plan of Care List of future care activities from Department of Veterans Affairs facilities. Additional future care activities may be listed in the Assessment and Plan section. Date/Time Care Activity Care Activity Detail Facili ty 08/18/2024 AMBULATORY - MEDICINE AMBULAT[facility] - [facility]ICI [facility]
--- NOTE | 2024-08-11 14:00 | MHC.PC.OV ---
Vital Signs 08/11/24 14:01 Height 6 ft 3 in Weight 205 lb BMI 25.6 BP 128/74 Blood Pressure Location Rt brachial Position Sitting Respiration 16 Pulse 84 Pulse Source Pulse Oximeter Temp 98.2 F Temp Source Oral Pulse Oximetry (%) 96 Oxygen Delivery Method Room Air Intake Visit Reasons: Referral for ENT Intake Note: Pt is here today to request referral for ENT Allergies No Known Allergies Allergy (Verified 08/11/24 14:02) Tobacco use date assessed: 08/11/24 Fall risk assessment: No Falls in past year Last assessed Fall Risk: 08/11/24 Dental Screening Dental Screen Date: 08/11/24 Did you have a dental visit in the last 12 months?: No Did you have a dental problem in the last 6 months where you did not have access to dental care?: No Was dental information given to patient?: Yes HPI Referral for ENT HPI Details Pt c/o hearing loss in the left ear for 3 weeks. Patient denies any pain ear discharge fever chills sore throat. He was diagnosed with tinnitus and hearing loss many years ago [facility]LY [facility] Medical History DJD (degenerative joint disease) Agoraphobia Hx of seizure disorder Hyperlipidemia GERD (gastroesophageal reflux disease) Anxiety Agent orange exposure Colonoscopy refused Lower back pain Renal cyst Benign liver cyst Surgical History History of bilateral inguinal hernia repair Hx of colonoscopy History of bilateral cataract extraction Family History Mother Diabetes Breast cancer Substance use disorder Social History Housing: Apartment Patient Tobacco Use Status: Former Tobacco user e-Cigarette/Vaping Use: Never Used service: Yes Current occupational status: retired Cognitive needs: No Hearing needs: No Vision needs: No Questionnaire Thrive Questionnaire Date Thrive assessed: 04/28/24 I am a: Patient What is your living situation today?: I choose not to answer this question Within the past 12 months, did the food you bought not last and you didn't have the money to get more?: I choose not to answer this question Within the past 12 months, did you worry whether your food would run out before you got money to buy more?: I choose not to answer this question Do you have trouble paying for medicines?: I choose not to answer this question Do you have trouble getting transportation to medical appointments?: I choose not to answer this question Do you have trouble paying your heating and electricity bill?: I choose not to answer this question Do you have trouble taking care of your child, family member or friend?: I choose not to answer this question Do you have trouble with day-to-day activities such as bathing, preparing meals, shopping, managing finances, etc.?: I choose not to answer this question Are you currently unemployed and looking for a job?: I choose not to answer this question Are you interested in more education?: I choose not to answer this question Please select the resources that you would like help with: None Currently or been in a relationship where the following occur: I choose not to answer THRIVE Score: 0 AMY-7 AMB Questionnaire AMY-7 Date AMY - 7 assessed: 04/28/24 Source: Developed by Drs. Avery Machuca, Harriett Garcia, Gigi Espinal and colleagues, with an educational vijaya from [employer]. Review of Systems Const All systems reviewed & are unremarkable except as noted in HPI and below Eyes Reports no additional complaints ENT Reports no additional complaints Card Reports no additional complaints Resp Reports no additional complaints Physical exam (Primary Care) Vital Signs: Last Vital Signs Temp 98.2 F 08/11/24 14:01 Pulse 84 08/11/24 14:01 Resp 16 08/11/24 14:01 BP 128/74 08/11/24 14:01 Pulse Ox 96 08/11/24 14:01 Oxygen Delivery Method Room Air 08/11/24 14:01 BMI result Body Mass Index 25.6 Tobacco/Smoking Status: Tobacco use Status Tobacco use date assessed 08/11/24 08/11/24 14:10 Patient Tobacco Use Status Former Tobacco user 08/11/24 14:03 e-Cigarette/Vaping Use Never Used 08/11/24 14:03 Thrive Assessment: Date of Thrive Assessment Date Thrive assessed 04/28/24 08/11/24 14:03 Currently or been in a relationship where the following occur: I choose not to answer Const General: no acute distress HENMT Ears: unable to visualize TM (Cerumen impacted) bilaterally Face and sinus: Yes normal facial exam Neck Neck: Yes supple Resp Auscultation: clear to auscultation bilaterally Cardio Rhythm: regular rhythm Heart sounds: S1 normal heart sound present and S2 normal heart sound present Coding Level of Care Code Est Pt Level 3 (69892) Diagnoses Impacted cerumen of both ears H61.23 Hyperlipidemia E78.5 Assessment & Plan Assessment & Plan (1) Impacted cerumen of both ears: Code(s): H61.23 - Impacted cerumen, bilateral Category: Medical Plan: Patient was advised to use Debrox 3 times a day for 4 days and follow-up (2) Hyperlipidemia: Code(s): E78.5 - Hyperlipidemia, unspecified Category: Medical Plan: Continue low-cholesterol diet
[2024-08-11 14:01] VITALS: BP 128/74; PULSE 84; RESP 16; TEMP 36.8; O2SAT 96; BMI 25.6
--- OUTSIDE RECORDS SUMMARY | 2024-08-11 14:20 | XMS_ITS | Clinical Summary ---
Author Organization [facility] Address [id number] [place] [id number] Care Team Providers Care Shop Blacksmith Name Role Phone Unavailable Primary Care Provider [...] e xtremity edema Psoriasis 05/08/2015 DX:Psoriasis Seizures ([facility] V24, CMS/HCC V28) 11/13/2015 DX:Seizures ([facility]) Family History Medical History [...]
== END 2024-08-11 15:15 | disposition home or self-care (01) ==
LOC: HO.HMCC 13:48
PROVIDERS: PCP Internal Medicine; Visit Provider Internal Medicine
DX: H61.23 Impacted cerumen, bilateral (principal); E78.5 Hyperlipidemia, unspecified

== ENCOUNTER → 2024-08-11 13:48 | Outpatient (BNVA) | payer MEDICARE, SELFPAY | PROVIDERS: PCP Internal Medicine; Visit Provider Internal Medicine | DX: H61.23 Impacted cerumen, bilateral (principal); E78.5 Hyperlipidemia, unspecified | CPT/HCPCS: 99212 ==

== ENCOUNTER 2024-08-16 13:47 | Outpatient (AMB) | payer MEDICARE, SELFPAY ==
--- OUTSIDE RECORDS SUMMARY | 2024-08-11 09:19 | XMS_ITS | Continuity of Care Document ---
Demographics Address [address] [facility] [address] [place] [address] Home Phone Phone [phone] Preferred Language en Marital Status Unknown Catholic Affiliation Unknown Race Unknown Ethnic Group Unknown Author Name [facility] Organization [facility] Care Team Providers Care Vp & General Counsel Name Role Phone [facility] Unavailable Unavailable Problems Combined list of problems [...] Comment: request MRI, ABD WHAV DEC 24 [place] Agoraphobia (SNOMED CT [id number]) [facility] [place] [facility] Aortic aneurysm screening normal Active Condition Sep 15 2 Entered By: NINO HOOPER Comment: 09/13/21 No evidence of abdominal aortic aneurysm. [facility] [place] [facility] Bipolar disorder Active Condition [place] Cataract Active Condition Aug 29 11 Entered By: CARTER AYON Comment: Surg O.U. AUGUST 20 [place] Cervicalgia Active [facility] [place] [facility] Chronic low back pain Active Condition [facility] [place] [facility] Chronic pain Active Condition Mar 17, 2013 Entered By: CARTER AYON Comment: [place] Rx Registry, NO EVENTS as of 03/16/13 [facility] [place] [facility] Colon cancer screening declined (SNOMED CT [id number]) Active Condition Mar 10, 2006 Entered By: CARTER AYON Comment: Father CRC - high-risk CRCFeb 2007 Entered By: CARTER AYON Comment: pending Colonoscopy end of APR 17 [facility] Entered By: CARTER AYON Comment: pt. now chooses to pursue Colorectal CancerJul 2007 Entered By: CARTER AYON Comment: [facility] ([facility])Jul 24, 2006 Entered By: SARATH GUERRERO Comment: referd gi [place] Displacement of lumbar intervertebral disc without myelopathy Active Condition Dec 03, 2005 Entered By: CARTER AYON Comment: +Radicular Sx left LE, post asp L5-S1Jul 2006 Entered By: CARTER AYON Comment: never had surg; has declined disc surg in past [place] DJD Active Condition Dec 03 Entered By: CARTER AYON Comment: C-Spine; also HNP C-SpineMar 10, 2006 Entered By: CARTER AYON Comment: C4-C5Jul 2006 Entered By: CARTER AYON Comment: never a had surgJul 24, 2006 Entered By: SARATH GUERRERO Comment: will need to bring back to talk about pain meds,tryvicod in [place] EKG Active Condition Jul 20 Entered By: CARTER AYON Comment: EKG, JULY 21; NSR [place] Enlarged prostate Active [facility] [place] [facility] Erectile dysfunction Active Condition [facility] [place] [facility] Generalized anxiety disorder Active [facility] [place] [facility] GERD Active Condition [place] H/o of Seizure Disorder(mini seizure) Active Condition [...] By: CARTER AYON Comment: CAD; declined CABG [place] Housing lack Active Condition [place] [facility] [place] [facility] Hyperlipidemia Active Condition Jul 122021 Entered By: HELDER NORIEGA Comment: Total chol/HDL/LDL/ trigs: 159/34/97/141 (08/03/21) --> ASCVD 18.4%, goal LDL < 70. Will have f/u to discuss statin therapy, prior CV histoyr, and FHx. [place] Inguinal hernia Active Condition Sep 15, 2021 Entered By: NINO HOOPER Comment: Left inguinal hernia, following [facility] intermediate current use of non-steroidal anti-inflammatory drug [facility] Medication Management Active Condition Mar 14, 2009 Entered By: CARTER AYON Comment: Signed Opioid Agreement 14 MAR 2009 [place] Unspecified episodic mood Disorder (ICD-9-CM 296.90) [facility] Bipolar Disorder NOS * (ICD-9-CM 296.7/296.80) Inactive Condition 05/10/2009 [facility] Medications Combined list of outpatient medications from Department of Defense and Veterans Affairs facilities.Medications provided include 1) outpatient medications from the last 15 months, and 2) patient-reported medications. Medication Details Route Status Patient Instructions Prescription Expires Prescription Number Last Dispense Date Ordering Provider Order Date Order Qty Source FUROSEMIDE 20MG TAB TAKE ONE TABLET BY MOUTH ONCE DAILY ORAL ACTIVE DALKE,MAT 2021 [facility] GABAPENTIN 300MG CAP TAKE 2 CAPSULES BY MOUTH TWICE DAILY ORAL ACTIVE DALKE,MAT 2021 [facility] [place] MELOXICAM 15MG TAB TAKE ONE TABLET BY MOUTH ONCE DAILY ORAL ACTIVE DALKE,MAT 2021 [facility] [place] [facility] NITROGLYCER IN 0.4MG TAB,SUBLING UAL DISSOLVE ONE TABLET UNDER THE TONGUE EVERY 5 MINUTES NEEDED SUBLIN GUAL ACTIVE DALKE,MAT 2021 [facility] [place] OMEPRAZOLE 20MG CAP,EC TAKE 1 CAPSULE BY MOUTH EVERY MORNING 30 MINUTES BEFORE BREAKFAS T ORAL ACTIVE DALKE,MAT 2021 [facility] [place] [facility] SILDENAFIL CITRATE 50MG TAB TAKE ONE TABLET BY MOUTH ONE HOUR BEFORE SEXUAL ACTIVITY TAKE 1 HOUR PRIOR TO SEXUAL ACTIVITY ORAL 05/30/2023 [id number] 4 STEPHANIE CHRISTIANSON 2022 6 [facility] Allergies, Adverse Reactions, Alerts Combined list of allergies from Department of Defense and Veterans Affairs facilities. It does not include entries that were removed or entered in error. Substance Category Reaction Severity Reaction type Status Date Reported Comments Source FIRE ANTS Propensity to adverse reaction (finding) active 6 [facility] STRAWBERRIES Propensity to adverse reactions to food (finding) active 6 [facility] VITAMIN B COMPLEX Propensity to adverse reactions to drug (finding) active 6 [facility] Immunizations Combined list of available immunizations from the Department of Defense and Veterans Affairs facilities. Immunization Series Date Given Administered By Site Reaction Lot Number CVX Code Drug Vegetable Farmer Status Comments Source COVID-19 (MODERNA), MRNA, LNP-S, PF, 100 MCG/0.5ML DOSE OR 50 MCG/0.25ML DOSE 2 2021 207 complet ed [facility] COVID-19 (MODERNA), MRNA, LNP-S, PF, 100 MCG/0.5ML DOSE OR 50 MCG/0.25ML DOSE 1 2021 207 complet ed [facility] INFLUENZA, UNSPECIFIED FORMULATION 2021 88 complet ed [facility] FLU,3 YRS (HISTORICAL) 2013 88 complet ed Site: Left Deltoid [place] FLU,3 YRS (HISTORICAL) 2013 88 complet ed [place] FLU,3 YRS (HISTORICAL) 2011 [facility] FLU,3 YRS (HISTORICAL) 2011 88 complet ed Site: Left Deltoid [place] DTAP, UNSPECIFIED FORMULATION 2010 107 complet ed Site: Right Deltoid [place] INFLUENZA VIRUS VACCINE, 3YR AND OLDER (HISTORICAL) 1999 88 complet ed [facility] Encounters Combined list of: 1) Encounters from Department of Veterans Affairs facilities going backup to the last 18 months, not all VA inpatient encounters are included; 2) Encounters from the Department of Defense facilities going backup to 280 months. Location Location Details Encounter Type Encounter Number Reason For Visit Attending Provider ADM Date DC Date Status [facility] Encounter [id number] 02/22 [facility] [place] [facility] [facility] Social History Combined list of available smoking, tobacco, and other social history from Department of Defense and Veterans Affairs facilities. Social History Type Response Date Comment Source Tobacco smoking status NHIS MS-TOBACCO FORMER USER 07/17/2021 [facility] [place] [facility] of [facility] OR MORE 07/17/2021 [facility] History of tobacco use QUIT TOBACCO USE > 7 YEARS AGO 11/02/2015 [place] History of tobacco use LIFETIME NON-TOBACCO USER 11/12/2006 [place] History of tobacco use QUIT TOBACCO USE 1-7 YEARS AGO 12/03/2005 stopped tobacco 4-5 years ago [place] History of tobacco use QUIT TOBACCO USE IN PAST YEAR 11/04/2005 neg [facility] History of tobacco use TOBACCO CESSATION: 1-5 YEARS 12/17/2004 2yrs [facility] History of tobacco use TOBACCO CESSATION: 1-5 YEARS 10/26/2003 [facility] History of tobacco use TOBACCO CESSATION: <1 YEAR 06/14/2003 continued cessation encouraged [facility] History of tobacco use TOBACCO CESSATION: <1 YEAR 03/07/2003 continued cessation encouraged [facility] History of tobacco use TOBACCO CESSATION: <1 YEAR 10/26/2002 quit ~ one month ago--continued cessation encouraged [facility] History of tobacco use TOBACCO CESSATION: <1 YEAR 08/16/2002 [facility] quit smoking last Fri--7-2-03 [facility] History of tobacco use CURRENT SMOKER 05/17/2002 1 ppd Ultra lights, is trying to quit. [facility] History of tobacco use CURRENT SMOKER 04/13/2002 1 P[facility]. [facility] History of tobacco use CURRENT SMOKER 04/05/2002 smokes one pack per day [facility] History of tobacco use CURRENT SMOKER 03/16/2002 1ppd [place] [place] History of tobacco use CURRENT SMOKER 01/26/2002 smokes one pack per day [facility] History of tobacco use TOBACCO USER 09/30/2001 smokes one pack per day [facility] Plan of Care List of future care activities from Department of Veterans Affairs facilities. Additional future care activities may be listed in the Assessment and Plan section. Date/Time Care Activity Care Activity Detail Facili ty 08/18/2024 AMBULATORY - MEDICINE AMBULATORY - MEDICI [facility]
--- OUTSIDE RECORDS SUMMARY | 2024-08-16 14:14 | XMS_ITS | Clinical Summary ---
Author Organization [facility] Address [id number] [place] [phone] Care Team Providers Care It Field Technician Name Role Phone Unavailable Primary Care Provider [...] e xtremity edema Psoriasis 05/08/2015 DX:Psoriasis Seizures ([facility] V24, CMS/HCC V28) 11/13/2015 DX:Seizures ([facility]) Family History Medical History Relation Name [...] - 2024-2 5 season) 2023 Influenza Vaccine (#1) 2024 RSV Immunization Adult Patients (1 - [...]
--- NOTE | 2024-08-16 14:28 | A.OFFPC_ITS ---
Vital Signs 08/16/24 14:29 Height 6 ft 3 in Weight 205 lb BMI 25.6 BP 134/72 Blood Pressure Location Lt brachial Position Sitting Respiration 18 Pulse 84 Pulse Source Pulse Oximeter Pulse Oximetry (%) 97 Oxygen Delivery Method Room Air Intake Visit Reasons: 5 day follow up Intake Note: Pt is here today for a follow up visit to get his ears flushed. Allergies No Known Allergies Allergy (Verified 08/11/24 14:02) Medication List - Last Reconciled 08/16/24 by Romina Kelly MD ascorbic acid (vitamin C) (Vitamin C) 500 mg PO BID aspirin 81 mg PO DAILY cholecalciferol (vitamin D3) (Vitamin D3) 25 mcg PO DAILY cyanocobalamin (vitamin B-12) (Vitamin B-12) 1,000 mcg PO DAILY fish,bora,flax oils-om3,6,9no1 1,200 mg ([place] 3-6-9) caps PO ginkgo biloba 40 mg PO DAILY ginseng 250 mg PO DAILY magnesium 1,000 mg PO BID meloxicam 15 mg PO DAILY omeprazole 20 mg PO DAILY tamsulosin 0.4 mg PO BID 90 days Tobacco use date assessed: 08/11/24 Dental Screening Dental Screen Date: 08/11/24 HPI 5 day follow up HPI Details Patient presents for the follow-up hearing loss in left ear. He has been using Debrox wax removal drops. Patient has not noticed any change in his hearing. He denies pain or discharge from left ear. BPH is stable on tamsulosin and patient is established with Urology [facility] Medical History DJD (degenerative joint disease) Agoraphobia Hx of seizure disorder Hyperlipidemia GERD (gastroesophageal reflux disease) Anxiety Agent orange exposure Colonoscopy refused Lower back pain Renal cyst Benign liver cyst Surgical History History of bilateral inguinal hernia repair Hx of colonoscopy History of bilateral cataract extraction Family History Mother Diabetes Breast cancer Substance use disorder Social History Housing: Apartment Patient Tobacco Use Status: Former Tobacco user e-Cigarette/Vaping Use: Never Used service: Yes Current occupational status: retired Cognitive needs: No Hearing needs: No Vision needs: No Questionnaire Thrive Questionnaire Date Thrive assessed: 04/28/24 I am a: Patient What is your living situation today?: I choose not to answer this question Within the past 12 months, did the food you bought not last and you didn't have the money to get more?: I choose not to answer this question Within the past 12 months, did you worry whether your food would run out before you got money to buy more?: I choose not to answer this question Do you have trouble paying for medicines?: I choose not to answer this question Do you have trouble getting transportation to medical appointments?: I choose not to answer this question Do you have trouble paying your heating and electricity bill?: I choose not to answer this question Do you have trouble taking care of your child, family member or friend?: I choose not to answer this question Do you have trouble with day-to-day activities such as bathing, preparing meals, shopping, managing finances, etc.?: I choose not to answer this question Are you currently unemployed and looking for a job?: I choose not to answer this question Are you interested in more education?: I choose not to answer this question Please select the resources that you would like help with: None Currently or been in a relationship where the following occur: I choose not to answer THRIVE Score: 0 AMY-7 AMB Questionnaire AMY-7 Date AMY - 7 assessed: 04/28/24 Source: Developed by Drs. Avery Machuca, Harriett Garcia, Gigi Espinal and colleagues, with an educational vijaya from [employer]. Review of Systems Const All systems reviewed & are unremarkable except as noted in HPI and below Eyes Reports no additional complaints ENT Reports no additional complaints Card Reports no additional complaints Resp Reports no additional complaints GI Reports no additional complaints Reports no additional complaints Physical exam (Primary Care) Vital Signs: Last Vital Signs Pulse 84 08/16/24 14:29 Resp 18 08/16/24 14:29 BP 134/72 08/16/24 14:29 Pulse Ox 97 08/16/24 14:29 Oxygen Delivery Method Room Air 08/16/24 14:29 BMI result Body Mass Index 25.6 Tobacco/Smoking Status: Tobacco use Status Tobacco use date assessed 08/11/24 08/16/24 14:29 Patient Tobacco Use Status Former Tobacco user 08/16/24 14:29 e-Cigarette/Vaping Use Never Used 08/16/24 14:29 Thrive Assessment: Date of Thrive Assessment Date Thrive assessed 04/28/24 08/16/24 14:29 Currently or been in a relationship where the following occur: I choose not to answer Const General: no acute distress HENMT Ears: TM's normal bilaterally Eyes General: appearance normal, both eyes and all related structures Neck Neck: Yes no lymphadenopathy and Yes supple Resp Effort & Inspection: normal respiratory effort Auscultation: clear to auscultation bilaterally Cardio Rhythm: regular rhythm Heart sounds: S1 normal heart sound present and S2 normal heart sound present Coding Level of Care Code Est Pt Level 4 (06858) Diagnoses Hyperlipidemia E78.5 Hyperglycemia R73.9 Hearing loss H91.90 Assessment & Plan Assessment & Plan (1) Hyperlipidemia: Code(s): E78.5 - Hyperlipidemia, unspecified Category: Medical Plan: Continue low-cholesterol diet return for fasting blood work (2) Hyperglycemia: Code(s): R73.9 - Hyperglycemia, unspecified Category: Medical Plan: Continue ADA diet, return for fasting blood work including A1c (3) Hearing loss: Code(s): H91.90 - Unspecified hearing loss, unspecified ear Category: Medical Plan: Referred for hearing test Orders: Orders Vitamin B12 and Folate Today E55.9 - Vitamin D deficiency, unspecified, E78.5 - Hyperlipidemia, unspecified, R73.9 - Hyperglycemia, unspecified Vitamin D 25-OH Total Today E55.9 - Vitamin D deficiency, unspecified, E78.5 - Hyperlipidemia, unspecified, R73.9 - Hyperglycemia, unspecified Comprehensive [place]. Panel Fast Today E55.9 - Vitamin D deficiency, unspecified, E78.5 - Hyperlipidemia, unspecified, R73.9 - Hyperglycemia, unspecified Complete Blood Count Auto Diff Today E55.9 - Vitamin D deficiency, unspecified, E78.5 - Hyperlipidemia, unspecified, R73.9 - Hyperglycemia, unspecified UA w Microscopic Today E55.9 - Vitamin D deficiency, unspecified, E78.5 - Hyperlipidemia, unspecified, R73.9 - Hyperglycemia, unspecified Lipid Panel Today E55.9 - Vitamin D deficiency, unspecified, E78.5 - Hyperlipidemia, unspecified, R73.9 - Hyperglycemia, unspecified Hemoglobin A1c Today E55.9 - Vitamin D deficiency, unspecified, E78.5 - Hyperlipidemia, unspecified, R73.9 - Hyperglycemia, unspecified Referrals Speech and Hearing Referral H91.90 - Unspecified hearing loss, unspecified ear Medications: New furosemide 20 mg PO DAILY 90 tabs 3RF Refilled tamsulosin 0.4 mg PO BID 180 caps 3RF 90 days
[2024-08-16 14:29] VITALS: BP 134/72; PULSE 84; RESP 18; O2SAT 97; BMI 25.6
== END 2024-08-16 15:09 | disposition home or self-care (01) ==
LOC: HO.HMCC 13:48
PROVIDERS: PCP Internal Medicine; Visit Provider Internal Medicine
DX: E78.5 Hyperlipidemia, unspecified (principal); R73.9 Hyperglycemia, unspecified; H91.90 Unspecified hearing loss, unspecified ear

== ENCOUNTER → 2024-08-16 13:47 | Outpatient (BNVA) | payer MEDICARE, SELFPAY | PROVIDERS: PCP Internal Medicine; Visit Provider Internal Medicine | DX: E78.5 Hyperlipidemia, unspecified (principal); R73.9 Hyperglycemia, unspecified; H91.92 Unspecified hearing loss, left ear | CPT/HCPCS: 99212 ==

== ENCOUNTER 2024-12-03 14:40 | Outpatient (AMB) | payer MEDICARE, SELFPAY ==
--- NOTE | 2024-12-03 14:38 | MHC.OFFVIS ---
Intake Visit Reasons: CYSTO Intake Note: patient presents today for: cystoscopy urology medications: vitB12, tamsulosin blood thinners: aspirin Client Renewal Specialist Required: No Accompanied by: Self / Same As Patient Allergies No Known Allergies Allergy (Verified 12/03/24 14:40) HPI Comments Details: 12/03/24--Bryson presents today for follow-up he was scheduled for office cystoscopy. He declines office cystoscopy. Previous ultrasound noted bladder stones. The patient states that he has less urinary discomfort he feels that he has a better flow I want to re-evaluate urinary tract, will check a CT pelvis, to re-evaluate bladder stones. History of Present Illness The patient is a 74-year-old male presenting for follow-up regarding bladder stones. Previously, an ultrasound identified the presence of bladder stones, which prompted today's follow-up visit. The patient reports experiencing less urinary discomfort and perceives an improvement in urinary flow since the last evaluation. He refuses office cystoscopy. Plan BPH Bladder Stones - The patient declined office cystoscopy for further evaluation. - A CT scan of the abdomen and pelvis is planned to reassess the bladder stones. 08/09/24 History of Present Illness - The patient is a 74-year-old male presenting with urinary symptoms and concerns regarding prostate and bladder health. - The patient has a history of benign prostatic hyperplasia, confirmed by ultrasound showing an enlarged prostate. - Recent ultrasound also revealed the presence of bladder stones. - The patient reports hearing loss, with complete loss in one ear and partial blockage in the other. - Current medications include tamsulosin BID and OTC saw palmetto, which the patient reports help with urinary flow. - The patient has concerns about taking dutasteride due to perceived cancer risk, despite updated literature not supporting this association. - The patient is also taking furosemide, prescribed by primary care. Results - Ultrasound: Enlarged prostate and bladder stones detected. - Bladder scan PVR 77 mL Discussion Notes I discussed with the patient the findings of the ultrasound, which showed an enlarged prostate and bladder stones. We talked about the option of performing a cystoscopy to better evaluate the bladder stones. The patient declines today but will reschedule. [birth year]09[birth year]24-25-zsyw-old male presenting with benign prostatic hyperplasia (BPH) for follow-up. He is currently managed with tamsulosin twice daily and reports an increase in nocturia, describing frequent nighttime urination at least three or more times per night. The previous PSA test showed a level of 1.93 mg/mL, and today's urinalysis was negative for infection, indicating no current urinary tract infection. He mentioned a history with furosemide, which increases his urination frequency. He prefers non-invasive treatment options and mentioned past surgical experience which influences his treatment decisions. I will order an ultrasound of the bladder, prostate, and kidneys to assess the urinary tract in a comprehensive manner. This imaging will help ascertain the current status of the prostate and rule out other anatomical contributors to his symptoms. Depending on these results, a cystoscopy may be scheduled in the future to directly examine the urinary tract. Meanwhile, we'll continue with the current tamsulosin dosage and add a medication aimed at gradually shrinking the prostate. On fu consider cysto. Urinary Symptoms Review - Nocturia occurring three or more times per night. - Urine clear with no signs of infection today. - Taking tamsulosin twice daily (morning and night). - Previous use of furosemide, known to increase urination frequency. Results - Labs: PSA level on 03/15/2024 was 1.93 mg/mL. - Tests: Urinalysis today was negative for leukocytes and blood. PFSH Medical History DJD (degenerative joint disease) Agoraphobia Hx of seizure disorder Hyperlipidemia GERD (gastroesophageal reflux disease) Anxiety Agent orange exposure Colonoscopy refused Lower back pain Renal cyst Benign liver cyst Surgical History History of bilateral inguinal hernia repair Hx of colonoscopy History of bilateral cataract extraction Family History Mother Diabetes Breast cancer Substance use disorder Social History Housing: Apartment Patient Tobacco Use Status: Former Tobacco user e-Cigarette/Vaping Use: Never Used service: Yes Current occupational status: retired Cognitive needs: No Hearing needs: No Vision needs: No Assessment & Plan Assessment & Plan (1) Bladder calculus: Code(s): N21.0 - Calculus in bladder Category: Medical (2) BPH (benign prostatic hyperplasia): Code(s): N40.0 - Benign prostatic hyperplasia without lower urinary tract symptoms Category: Medical (3) Nocturia more than twice per night: Code(s): R35.1 - Nocturia Category: Medical Plan Plan BPH Bladder Stones - The patient declined office cystoscopy for further evaluation. - A CT scan of the abdomen and pelvis is planned to reassess the bladder stones. Orders: Orders CT pelvis wo IV con 12/03/24 N21.0 - Calculus in bladder, N40.0 - Benign prostatic hyperplasia without lower urinary tract symptoms Patient Instructions: The patient had an opportunity to ask questions regarding treatment plan. The patient expressed understanding and agreement with the above treatment plan. The patient is aware they should contact our office by phone for worsening of their current condition or the appearance of new symptoms. Compliance is encouraged with any medications and followup testing that is ordered. It is a privilege to be allowed the opportunity to participate in the urologic care of your patient. If you have any questions or concerns regarding treatment for the above conditions please do not hesitate to contact me. The office telephone contact is [phone]. This note is constructed in part using voice recognition software. While every effort has been made to ensure accuracy beater machine operator errors may have been included. Yours sincerely, Dylon Gordon MD Scribe Plan - Not visible on output: Patient was informed and verbally consented to the use of an ambient scribe for clinic note documentation during this visit. Coding Level of Care Code Est Pt Level 4 (60665) Complex visit Add On G2211 Diagnoses Bladder calculus N21.0 BPH (benign prostatic hyperplasia) N40.0 Nocturia more than twice per night R35.1
--- OUTSIDE RECORDS SUMMARY | 2024-12-03 16:26 | XMS_ITS | Clinical Summary ---
Author Organization [facility] Address [address] [place] [phone] Care Team Providers Care Vat Overhauler Name Role Phone Unavailable Primary Care Provider [...] e xtremity edema Psoriasis 05/08/2015 DX:Psoriasis Seizures ([facility]/HCC V24, CMS/HCC V28) 11/13/2015 DX:Seizures ([facility]) Family History Medical History Relation Name Comments [...] 1969 Zoster Vaccines (1 of 2) 2000 Depression Screening 02/11/2024 COVID-19 Vaccine (2023-2 5 season) 2024 Influenza Vaccine (#1) 2024 RSV Immunization Adult [...]
== END 2024-12-03 15:18 | disposition home or self-care (01) ==
LOC: HO.HUSH 14:41
PROVIDERS: PCP Internal Medicine; Visit Provider Urology
DX: N21.0 Calculus in bladder (principal); N40.0 Benign prostatic hyperplasia without lower urinary tract symptoms; R35.1 Nocturia
CPT/HCPCS: 99214; G2211

== ENCOUNTER → 2024-12-03 14:40 | Outpatient (BNVA) | payer MEDICARE, SELFPAY | PROVIDERS: PCP Internal Medicine; Visit Provider Urology | DX: N21.0 Calculus in bladder (principal); N40.0 Benign prostatic hyperplasia without lower urinary tract symptoms; R35.1 Nocturia; Z79.82 Long term (current) use of aspirin; Z87.891 Personal history of nicotine dependence | CPT/HCPCS: 99212 ==